=== PATIENT | female | born 1945 | race Caucasian/White ===

== ENCOUNTER 2018-04-27 15:40 | Observation (INO) | payer OTHER ==
--- OUTSIDE RECORDS SUMMARY | 2018-04-27 15:44 | XMS REPORT ---
:1945 Author Organization [employer] Care Team Providers Name Role Phone Fabiano Boyer Provider Role Unavailable Allergies, Adverse Reactions, Alerts Substance Reaction Event Type adhesive tape Info Not Available Non Drug Allergy penicillin Info Not Available Non Drug Allergy sulfa KARY, Rash Non Drug Allergy Elavil Info Not Available Non Drug Allergy betadine Info Not Available Non Drug Allergy Encounters Encounter Location Date [place] Jul 26, 2013 Test results [facility] Jul 27, 2013 diarrhea [facility] [place] Jul 25, 2013 Problems Problem Type Condition ICD-9 Code Onset Dates Condition Status Assessment Gastroenteritis 558.9 Active Assessment Diarrhea 787.91 Active Assessment Nicotine Abuse 305.1 Active Problem Nicotine Abuse 305.1 Active Problem Chronic pain syndrome 338.4 Active Problem Unspecified myalgia and myositis 729.1 Active Problem Body Mass Index 31.0-31.9, adult V85.31 Active Assessment Abdominal pain, left lower 789.04 Active quadrant Problem Pain in joint, pelvic region and 719.45 Active thigh Problem Hypothyroidism 244.9 Active Assessment Body Mass Index 31.0-31.9, adult V85.31 Active Assessment Pain in joint, pelvic region and 719.45 Active thigh Assessment Screening for depression V79.0 Active Assessment Chronic pain syndrome 338.4 Active Assessment Screening for alcoholism V79.1 Active Assessment Unspecified myalgia and myositis 729.1 Active Medications Medication Code Code Instructions Start End Status Dosage System Date Date Chantix Starting [facility] 47731-08 0.5 MG X 11 & 1 Active as directed Month Deepak 71-02 MG X 42 [place] [address]-80 1 MG Orally Active 1 tablet 69-56 Twice a day Naftin [facility] 37506-09 2 % Externally Active 1 application 02-45 Once a day to affected area Advair Diskus [facility] 37248-59 250-50 MCG/DOSE Active 1 puff 96-00 Inhalation Twice a day Lyrica NDC 05204-78 75 MG Orally Active 1 capsule 14-41 Twice a day Chlorzoxazone NDC 02777-45 500 MG Orally Active 1 tablet 12-10 Three times a day Hydrocodone-APAP- MULTUM 34688 10-325 MG Active as directed Dietary Prod Orally Alprazolam NDC 58644-89 1 MG Orally Active 1 tablet 31-10 Twice a day Ciprofloxacin HCl NDC 28422-73 500 mg Orally Active 1 tablet 37-01 twice a day Tizanidine HCl NDC 81690-92 2 MG Orally Active 1 tablet as 34-10 every 8 hrs needed Levothyroxine NDC 26229-35 75 MCG Orally Active 1 tablet on an Sodium 55-00 Once a day empty stomach in the morning Social History Social History Element Qualifiers Date Reported Smoking / Tobacco Use: . Status: Current Smoker Jul 25, 2013 Alcohol: yes. seldom Jul 25, 2013 Family history Qualifier Description Comment Date Reported Mother had a previous stroke- passed 8 days after Jul 25, 2013 Father lung cancer Jul 25, 2013 Vital Signs Date/Time: Jul 25, 2013 Blood Pressure Diastolic 91 mm Hg Blood Pressure Systolic 160 mm Hg Temperature 97.3 F Weight 157 lbs Height 59 inches Results URINALYSIS, COMPLETE CBC (INCLUDES DIFF/PLT) Summary Purpose [employer] Submission
--- OUTSIDE RECORDS SUMMARY | 2018-04-27 15:44 | XMS REPORT | Continuity of Care Document ---
:1945 Author Organization Interface Problems Problem Status Onset Classification Date Comments Source Date Reported Discharge 11/01/19 11/03/2016 Diagnosis: Acute 17 [place] bronchitis Discharge 11/01/19 11/03/2016 Diagnosis: Acute 17 [place] laryngitis VOMITTING/ UPPER Active 11/01/19 [facility] 17 [facility] R10.84 - Active 09/09/19 [facility] GENERALIZED 17 [place] ABDOMINAL PAIN K43. Nicotine Abuse Active Diagnosis 08/19/2013 Fabiano Mussaji Chronic pain Active Problem 08/19/2013 Fabiano syndrome Mussaji Unspecified Active Problem 08/19/2013 [facility]iano myalgia and Mussaji myositis Body Mass Index Active Problem 08/19/2013 Fabiano 31.0-31.9, adult Mussaji Pain in joint, Active Problem 08/19/2013 Fabiano pelvic region and Mussaji thigh Hypothyroidism Active Problem 08/19/2013 Fabiano Mussaji Gastroenteritis Active Diagnosis 08/19/2013 Fabiano Mussaji Diarrhea Active Diagnosis 08/19/2013 Fabiano Mussaji Abdominal pain, Active Diagnosis 08/19/2013 Fabiano left lower Mussaji quadrant Screening for Active Diagnosis 08/19/2013 Fabiano depression Mussaji Screening for Active Diagnosis 08/19/2013 Fabiano alcoholism Mussaji Chronic pain Active Problem 10/03/2017 Medical Group IBS (<span Resolved Problem 10/03/2017 Medical ID="[id number]"> Group, Confirmed</span>) Elvis Yeh COPD Resolved Problem 10/03/2017 Medical Group, Elvis Yeh Depression Active Problem 10/03/2017 Medical Group Diverticulosis Resolved Problem 10/03/2017 Medical Group, Elvis Yeh Former smoker Active Problem 10/03/2017 Medical Group Gastric ulcer Active Problem 10/03/2017 Medical Group History of bladder Active Problem 10/03/2017 Medical suspension Group procedure History of breast Active Problem 10/03/2017 Medical cancer Group History of colon Active Problem 10/03/2017 Medical cancer Group History of uterine Active Problem 10/03/2017 Medical cancer Group History of ovarian Active Problem 10/03/2017 Medical cancer Group Status post right Active Problem 10/03/2017 Medical knee replacement Group History of colon Active Problem 10/03/2017 Medical polyps Group, VIBHA BaezElvis Meyers [place] Hypothyroidism Active Problem 10/03/2017 Medical Group, VIBHA Baez,Elvis Meyers [place] Uterine cancer Resolved Problem 10/03/2017 Medical Group, VIBHA Baez,Elvis Meyers [place] Breast cancer Resolved Problem 10/03/2017 Medical Group, VIBHA BaezElvis Meyers [place] Ovarian cancer Resolved Problem 10/03/2017 Medical Group, VIBHA BaezElvis Meyers [place] Migraine Active Problem 10/03/2017 Medical Group, VIBHA BaezElvis Meyers [place] Migraines Resolved Problem 10/03/2017 Medical Group, VIBHA BaezElvis [place] Fibromyalgia Active Problem 10/03/2017 Medical Group, VIBHA Baez Luigi [place] Polyarthralgia Active Problem 10/03/2017 Medical Group Colitis Resolved Problem 10/03/2017 Medical Group, VIBHA BaezElvis Meyers [place] Obesity Active Problem 10/03/2017 Medical Group, VIBHA BaezElvis Meyers [place] Sciatica of right Active Problem 10/03/2017 Medical side Group Acrochordon Active Problem 10/03/2017 Medical Group Swelling of right Active Problem 10/03/2017 Medical lower extremity Group Cystocele with Active Problem 10/03/2017 Medical rectocele Group, VIBHA BaezElvis Meyers S[place] RLS (<span Resolved Problem 10/03/2017 Medical ID="[id number]"> Group, Confirmed</span>) Elvis Yeh Medications Medication Details Route Status Patient Ordering Order Source Instructions Provider Date rOPINIRole 2 mg 2 mg=1 tab, Active oral tablet PO, BID, # 2018 Medical 180 ea, 3 Group Refill(s), Pharmacy: [facility] montelukast 10 See Active mg oral tablet Instructions, 2018 Medical TAKE 1 TABLET Group BY MOUTH DAILY, # 90 tab, 3 Refill(s), Pharmacy: [facility] [id number] Fluticasone 1 puff, Active propionate 0.25 INHALATION, 2018 Medical MG/ACTUAT / BID, # 180 Group salmeterol 0.05 puff, 11 MG/ACTUAT Dry Refill(s), Powder Inhaler Pharmacy: [facility] [id number] 200 ACTUAT 180 Active Albuterol 0.09 microgram=2 2018 Medical MG/ACTUAT puff, Group Metered Dose INHALATION, Inhaler [ProAir QID, PRN PRN, HFA] # 3 ea, 3 Refill(s), Pharmacy: [facility] [id number] Furosemide 20 20 mg=1 tab, Active MH MG Oral Tablet PO, Daily, # 2018 Medical 90 tab, 3 Group Refill(s), Pharmacy: [facility] [id number] Levothroid 88 88 Active mcg (0.088 mg) microgram=1 2018 Medical oral tablet tab, PO, Group Daily, # 90 tab, 3 Refill(s), Pharmacy: [facility] [id number] Furosemide 20 20 mg=1 tab, Inactive MH MG Oral Tablet PO, Daily, # 2018 Medical 90 tab, 0 Group Refill(s) Acetaminophen 1 tab, Route: Inactive MH 325 MG / PO, Drug 2017 [place] Hydrocodone Form: TAB, Bitartrate 5 MG Dosing Weight Oral Tablet 74.545, kg, [[place] 5/325] ONCE, STAT, Start date: 10/31/16 18:03:00 CDT, Stop date: 10/31/16 18:03:00 CDT Prednisone 50 50 mg=1 tab, Active 10/31/ MH MG Oral Tablet PO, Daily, X 2017 Sasha 5 day, # 5 tab, 0 Refill(s) Acetaminophen 5 ml, PO, Active 10/31/ MH 24 MG/ML / Q6H, PRN 2017 [place] Codeine Cough, X 5 Phosphate 2.4 day, # 100 MG/ML Oral mL, 0 Solution Refill(s) tramadol 50 mg=1 tab, Active 10/31/ MH hydrochloride PO, Q4H, PRN 2017 [place] 50 MG Oral pain, X 3 Tablet [Ultram] day, # 20 tab, 0 Refill(s) Albuterol 0.833 9 mL, Route: Inactive MG/ML / NEB, Drug 2016 [place] Ipratropium Form: SOLN, [place] 0.167 Dosing Weight MG/ML Inhalant 74.545, kg, Solution PRN, PRN [DuoNeb] Respiratory Protocol, Start date: 10/31/16 16:35:00 CDT, Duration: 30 day, Stop date: 11/30/16 16:34:00 CDTNotes: (Same as: Duoneb) Prednisone 60 mg, Route: Inactive PO, Drug 2016 [place] form: TAB, ONCE, Dosing Weight 74.545, kg, Priority: STAT, Start date: 10/31/16 16:35:00 CDT, Stop date: 10/31/16 16:35:00 CDT Saline Flush 10 mL, Route: Inactive 0.9% IVP, Drug 2016 [place] Form: INJ, Dosing Weight 74.545, kg, PRN, PRN Line Flush, Start date: 10/31/16 15:16:00 CDT, Duration: 30 day, Stop date: 11/30/16 15:15:00 CDTNotes: (Same as: BD Posiflush) Chantix as directed Orally Active 0.5 MG X 11 & Mussaji Fabiano Starting Month 1 MG X 42 [facility] Deepak Orally use as directed Chantix 1 tablet Orally Active 1 MG Orally Mussaji Fabiano Twice a day [facility] Naftin 1 application Externally Active 2 % Mussaji Fabiano to affected Externally [facility] area Once a day Advair Diskus 1 puff Inhalation Active 250-50 Mussaji Fabiano MCG/DOSE [facility] Inhalation Twice a day Lyrica 1 capsule Orally Active 75 MG Orally Mussaji Fabiano Twice a day [facility] Chlorzoxazone 1 tablet Orally Active 500 MG Orally Mussaji Fabiano Three times a [facility] day Hydrocodone-APA as directed Orally Active 10-325 MG Mussaji Fabiano P-Dietary Prod Orally [facility] Alprazolam 1 tablet Orally Active 1 MG Orally Mussaji Fabiano Twice a day Rosalind Ciprofloxacin 1 tablet Orally Active 500 mg Orally Rosalind Fabiano HCl twice a day Rosalind Tizanidine HCl 1 tablet as Orally Active 2 MG Orally Rosalind Fabiano needed every 8 hrs Rosalind Levothyroxine 1 tablet on Orally Active 75 MCG Orally Rosalind Fabiano Sodium an empty Once a day Rosalind stomach in the morning Allergies, Adverse Reactions, Alerts Substance Category Reaction Severity Reaction Status Date Comments Source type Reported adhesive tape Adverse Info Not Adverse Active Fabiano Reaction Available Reaction 4 Rosalind penicillin Adverse Info Not Adverse Active Fabiano Reaction Available Reaction 4 Rosalind sulfa Adverse KARY, Rash Adverse Active Fabiano Reaction Reaction 4 Rosalind betadine Adverse Info Not Adverse Active Fabiano Reaction Available Reaction 4 Rosalind Elavil Assertion Drug Active allergy Medical Group penicillins Assertion Drug Active allergy Medical Group sulfa drugs Assertion Drug Active allergy Medical Group clindamycin Assertion Drug Active allergy Medical Group minocycline Assertion Drug Active allergy Medical Group nitrofurantoin Assertion Drug Active allergy Medical Group bacitracin Assertion Drug Active allergy Medical Group Betadine Assertion Drug Active allergy Medical Group Advil Assertion Drug Active allergy Medical Group Levaquin Assertion Drug Active allergy Medical Group Benadryl Assertion Drug Active allergy Medical Group Tape Assertion Drug Active allergy Medical Group Benadryl Assertion Drug Active Allergy Sinus allergy Medical (obsolete1) Group levoFLOXacin Assertion Drug Active allergy Medical Group Immunizations Immunization Date Site Status Last Comments Source Given Updated diphtheria/pertus Left completed [facility] sis, acel/tetanus 6 Deltoid Comment: Group, adult<sup>1</sup> needle OPID length: Sasha 25X1" [place] pneumococcal Right completed [facility] 13-valent vaccine 6 deltoid Group, [facility]ID [place] Hx pneumococcal completed [facility] vaccine 6 [facility], [facility] influenza virus completed [facility] vaccine, 6 Group, inactivated OPID [facility] Results Order Name Results Value Reference Date Interpretation Comments Source Range URINE AND UA Blood Small Negative 10/31 [facility] [place] *ABN* (10/31/16 6:09 PM) URINE AND UA 0.2 EU/dL 0.1 - 1.0 10/31 STOOL Urobilinogen /2016 [place] URINE AND UA pH 6.5 5.0 - 8.0 10/31 STOOL [place] URINE AND UA Protein Negative Negative 10/31 [facility]OOL [place] (10/31/16 6:09 PM) URINE AND UA Bili Negative Negative 10/31 [place] *NA* (10/31/16 6:09 PM) URINE AND UA Ketones Negative Negative 10/31 [place] *NA* (10/31/16 6:09 PM) URINE AND UA Sq Epi Many /LPF Few /LPF 10/31 [place] URINE AND UA Leuk Est Large Negative 10/31 STOOL [place] *ABN* (10/31/16 6:09 PM) URINE AND UA Glucose Negative Negative 10/31 [place] (10/31/16 6:09 PM) URINE AND UA Nitrite Negative Negative 10/31 STOOL [place] (10/31/16 6:09 PM) URINE AND UA Bacteria Moderate None Seen 10/31 STOOL /HPF /HPF [place] URINE AND UA RBC 0-2 /HPF 0 - 2 10/31 [place] URINE AND UA WBC 11-20 /HPF None Seen 10/31 STOOL /HPF [place] URINE AND UA Turbidity Slight Cloudy Clear 10/31 [place] (10/31/16 6:09 PM) URINE AND UA Color Yellow Yellow 10/31 [place] *NA* (10/31/16 6:09 PM) URINE AND UA Spec Grav 1.015 <=1.030 10/31 STOOL [place] CARDIAC CK MB 0.9 ng/mL 0.5 - 3.6 10/31 ENZYMES [place] CARDIAC Total CK 63 unit/L 12 - 191 10/31 ENZYMES [place] CARDIAC Troponin-I null 0.00 - 10/31 ENZYMES 0.40 [place] CARDIAC CK-MB INDEX 1.4 0.0 - 2.5 10/31 MH ENZYMES [place] CHEM PANEL eGFR 51 10/31 Result Comment: The eGFR is calculated using the CKD-EPI formula. In most young, healthy individuals the eGFR will be >90 mL/ min/1.73m2. The eGFR declines with age. An eGFR of 60-89 may be normal in mL/min/1.7 2017 some populations, particularly the elderly, for whom the CKD-EPI formula has not been extensively validated. Use of the eGFR is not recommended in the following populations: [address] Individuals with unstable creatinine concentrations, including patients and those with serious co-morbid conditions. Patients with extremes in muscle mass or diet. The data above are obtained from the National Kidney Disease Education Program (NKDEP) which additionally recommends that when the eGFR is used in patients with extremes of body mass index for purposes of drug dosing, the eGFR should be multiplied by the estimated BMI. CHEM PANEL B/C Ratio 6 6 - 25 10/31 [place] CHEM PANEL A/G Ratio 0.9 0.7 - 1.6 10/31 [place] CHEM PANEL Globulin 3.8 g/dL 2.7 - 4.2 10/31 [place] CHEM PANEL Creatinine 1.08 mg/dL 0.50 - 10/31 MH Lvl 1.40 [place] CHEM PANEL Potassium 3.8 meq/L 3.5 - 5.1 10/31 MH Lvl [place] CHEM PANEL Sodium Lvl 141 meq/L 135 - 145 10/31 [place] CHEM PANEL Albumin Lvl 3.3 g/dL 3.5 - 5.0 10/31 [place] CHEM PANEL Alk Phos 98 unit/L 39 - 136 10/31 [place] CHEM PANEL Glucose Lvl 96 mg/dL 70 - 99 10/31 [place] CHEM PANEL BUN 7 mg/dL 7 - 22 10/31 [place] CHEM PANEL ASPARTATE 15 unit/L 0 - 37 10/31 [place] CHEM PANEL Total 7.1 g/dL 6.4 - 8.4 / MH [place] CHEM PANEL AGAP 12.8 meq/L 10.0 - 05 MH 20.0 [place] CHEM PANEL Chloride Lvl 105 meq/L 95 - 109 10/31 [place] CHEM PANEL CO2 27 meq/L 24 - 32 05 [place] CHEM PANEL Bili Total 0.3 mg/dL 0.2 - 1.3 10/31 [place] CHEM PANEL Calcium Lvl 8.8 mg/dL 8.5 - 10.5 10/31 [place] CHEM PANEL ALANINE 23 unit/L 0 - 65 10/31 MH AMINOTRANS /2016 [place] RAS HEMATOLOGY WBC X 10x3 9.0 K/CMM 3.7 - 10.4 10/31 [place] HEMATOLOGY RBC X 10x6 4.95 M/CMM 4.20 - 05 MH 5.40 [place] HEMATOLOGY Hgb 14.3 g/dL 12.0 - 10/31 MH 16.0 [place] HEMATOLOGY Platelet 251 K/CMM 133 - 450 10/31 [place] HEMATOLOGY MCHC 33.3 g/dL 32.0 - 10/31 MH 36.0 [place] HEMATOLOGY RDW 15.2 % 11.5 - 10/31 MH 14. [place] HEMATOLOGY MCV 87.0 fL 80.0 - 10/31 MH 98.0 [place] HEMATOLOGY MPV 9.0 fL 7.4 - 10.4 10/31 [place] HEMATOLOGY MCH 29.0 pg 27.0 - 10/31 MH 31.0 [place] HEMATOLOGY Hct 43.1 % 36.0 - 10/31 MH 48.0 [place] HEMATOLOGY Eosinophils 2.8 % 0.0 - 4.0 10/31 [place] HEMATOLOGY Monocytes 9.0 % 2.0 - 12.0 10/31 [place] HEMATOLOGY Segs-Bands # 5.5 K/CMM 1.5 - 8.1 10/31 [place] HEMATOLOGY Basophils 1.1 % 0.0 - 1.0 10/31 [place] HEMATOLOGY Lymphocytes 2.4 K/CMM 1.0 - 5.5 10/31 MH # /2017 [place] HEMATOLOGY Lymphocytes 26.6 % 20.0 - 10/31 MH 40.0 [place] HEMATOLOGY Segs 60.5 % 45.0 - 10/31 MH 75.0 [place] HEMATOLOGY Basophils # 0.1 K/CMM 0.0 - 0.2 10/31 [place] HEMATOLOGY Eosinophils 0.3 K/CMM 0.0 - 0.5 10/31 MH # /2016 [place] HEMATOLOGY Monocytes # 0.8 K/CMM 0.0 - 0.8 10/31 [place] Brain wo Brain wo Study: Brain wo contrast CT 10/31/2016 3:17 PM CDT 10/31 - [facility] contrast CT contrast CT [place] Patient Name: SARAH ALFARO MR: [id number] Read by: Raj Reddy MD Dictated Date/time: 10/31/16 16:12 : 1945; Age: 71 years y/o Female Electronically Signed by: Raj Reddy MD 10/31/16 16:17 FINAL REPORT Ordering Physician: Harlan Perez Clinical Indication: Right-sided weakness for 3 days. Dlp 929.66 Comparison: None TECHNIQUE: CT images were obtained from the foramen magnum to the vertex without the use of intravenous contrast on a multidetector CT. Coronal and sagittal reformatted images were prepared. FINDINGS: BRAIN PARENCHYMA: 1. Mild diffuse age-appropriate atrophy is present associated with mild nonspecific periventricular low attenuation most consistent with old microangiopathic ischemic change. 2. No evidence of acute intracranial hemorrhage, mass lesion, mass effect , midline shift, or extra-axial fluid collection. 3. Subtle low-attenuation posteriorly within both centrum semiovale most likely representing old ischemic change. 4. Small benign-appearing calcification along the lateral margin of the left tentorium cerebelli. VENTRICLES: The lateral ventricles, third ventricle, fourth ventricle, and basilar cisterns are appropriate for degree of atrophy present. PARANASAL SINUSES: The visualized portions of the paranasal sinuses are clear. MASTOIDS: Clear. ORBITS AND SOFT TISSUES: The visualized portions of the orbits are normal. SKULL: No acute fracture or suspicious osseous lesion. IMPRESSION: 1. Mild diffuse age-appropriate atrophy is present associated with mild nonspecific periventricular low attenuation most consistent with old microangiopathic ischemic change. 2. Subtle low-attenuation posteriorly within both centrum semiovale most likely representing old ischemic change. Follow-up MR brain without contrast would be helpful. SL: TPAINTER-PC Chest 1view Chest 1view Clinical Indication:71 years Female with Chest pain - chest pain 10/31 - [facility] DX DX /2016 - [place] Comparison: None Read by: Rajat Arnold MD Dictated Date/time: 10/31/16 16:13 FINDINGS: Electronically Signed by: Rajat Arnold MD 10/31/16 16:14 FINAL REPORT Lines: None. The single frontal chest radiograph shows normal lung volumes. No interstitial or airspace opacities. No pleural effusion. No pneumothorax. Cardiac silhouette is normal. Pulmonary vasculature is normal. The trachea is midline. There are no acute osseous abnormalities noted. Right breast/ axillary soft tissue surgical clips. Cholecystectomy clips are also noted. IMPRESSION: No acute cardiopulmonary abnormality. Abdomen/Pel Abdomen/Pelv PROCEDURE: ABDOMEN AND PELVIS CT 09/10 - YANIRAD vis w/wo IV is w/wo IV /2016 - [place] contrast CT contrast CT CLINICAL INDICATION: R10.84, K43.9. Read by: Giuliano Lovelace MD Dictated Date/time: 09/10/16 16:42 Electronically Signed by: Giuliano Lovelace MD 09/13/16 12:23 FINAL REPORT COMPARISON: None. TECHNIQUE: Unenhanced and enhanced axial helical CT images of the abdomen and pelvis were performed. Postcontrast images were performed with intravenous and oral contrast. Postcontrast coronal and sagit edita reformatted images are available. Intravenous contrast: 100 mL of Visipaque.DLP: 1852.24 mGy-cm. FINDINGS: LOWER CHEST: There is mild scattered subsegmental atelectasis versus scarring in the visualized lung bases. The heart size is normal. ORGANS: The gallbladder is surgically absent. The common bile duct is dilated measuring a maximal diameter of approximately 1.1 cm. There is mild central intrahepatic biliary dilatation. There is no dem onstrable choledocholithiasis. There is a 1.3 cm left adrenal nodule with a Hounsfield unit measurement of approximately 7 on the precontrast series suggesting a benign adenoma. There is a tiny calcifie d granuloma in the liver and spleen. There is a 5 mm exophytic left renal cortical cyst. The pancreas is somewhat atrophic. There is no demonstrable abnormality of the right adrenal gland or right kidne y. No demonstrable urinary tract calculus. No hydronephrosis or pyelonephritis. BOWEL: There is a nonobstructive bowel gas pattern. There is a diverticulum arising medially from the 2nd portion of the duodenum. There is scattered colonic diverticulosis without demonstrable acute di verticulitis. There are postsurgical changes of the sigmoid colon. There is no additional demonstrable bowel abnormality. The appendix is not seen. PERITONEUM: There is no free intraperitoneal air or ascites. RETROPERITONEUM: There are aortoiliac calcifications. The caliber of the abdominal aorta is within normal limits. There is no pathologic retroperitoneal lymphadenopathy. PELVIS: The uterus is surgically absent. The ovaries are not seen and are reportedly surgically absent. The urinary bladder is unremarkable. There are pelvic arterial vascular calcifications and calcifi ed phleboliths. There is no demonstrable pelvic mass. MUSCULOSKELETAL: There are focal bandlike opacities in the subcutaneous fat of the posterior right lower thorax likely due to scarring. There are surgical clips in the subcutaneous soft tissues of the r ight lateral chest wall. There is minimal anterior bulging of the right anterolateral abdominal wall in the pelvis at the level of the cecum (images 58 through 60 series 4) although without a demonstrab le abdominal wall defect to confirm a hernia. There is no additional demonstrable abdominal wall abnormality. There is diffusely decreased bony mineralization. There are degenerative changes of the spine. A subcentimeter sclerotic lesion in the marrow of T12 and a 1.3 cm sclerotic lesion in the marrow of the sa efraín are likely benign bone islands. There are mild degenerative changes of both sacroiliac joints. IMPRESSION: 1. Post cholecystectomy and hysterectomy. 2. Extrahepatic biliary dilatation and mild central intrahepatic biliary dilatation is likely due to postcholecystectomy changes. If indicated further evaluation may be obtained with an MRCP. 3. There is a 1.3 cm left adrenal nodule with imaging characteristics suggesting a benign adenoma. 4. Subcentimeter left renal cortical cyst. 5. Duodenal diverticulum, colonic diverticulosis and postsurgical changes of the sigmoid colon. 6. Aortoiliac calcifications. 7. Focal bulging of the right anterolateral abdominal wall in the pelvis at the level of the cecum. There is no demonstrable abdominal wall defect to confirm a hernia. 8. Osseous findings as described above. SL: 15 Vital Signs Vital Sign Value Date Comments Source Systolic (mm Hg) 114 09/30/2017 Medical Group Diastolic (mm Hg) 75 09/30/2017 [facility] Heart Rate 96 09/30/2017 [facility] Temperature Oral (F) 97.8 F 09/30/2017 Medical Group BMI Calculated 33.88 09/30/2017 Medical Group Height 152.4 cm 09/30/2017 Medical Group Weight 78.682 09/30/2017 Medical Group Heart Rate 102 10/31/2016 [facility] Respitory Rate 24 10/31/2016 [facility] Systolic (mm Hg) 110 10/31/2016 [facility] Diastolic (mm Hg) 59 10/31/2016 [facility] Respitory Rate 16 10/31/2016 [facility] Systolic (mm Hg) 104 10/31/2016 [facility] Diastolic (mm Hg) 79 10/31/2016 [facility] Heart Rate 108 10/31/2016 [facility] Respitory Rate 28 10/31/2016 [facility] Temperature Oral (F) 98.1 F 10/31/2016 [facility] Systolic (mm Hg) 118 10/31/2016 [facility] Diastolic (mm Hg) 73 10/31/2016 [facility] Heart Rate 89 10/31/2016 [facility] Diastolic (mm Hg) 91 07/25/2013 Fabiano Ubaldoajoan Systolic (mm Hg) 160 07/25/2013 Afb[facility] Ubaldoajoan Temperature Oral (F) 97.3 F 07/25/2013 Fabiano Ubaldoaji Weight 157 07/25/2013 Fabiano Ubaldoaji Height 59 07/25/2013 Fabiano Mussaji Encounters Location Location Encounter Encounter Reason Attending ADM DC Status Source Details Type Number For Provider Date Date Visit Fabiano diarrhea [id number] 07/25 07/25 Fabiano Armas, [id number] /2013 BARBIE Boyer DO [id number] Fabiano Other [id number] 07/26 07/26 Fabiano Armas, [id number] /2013 BARBIE Boyer DO [id number] Fabiano Other [id number] 07/26 07/26 Fabiano Armas, [id number] /2013 BARBIE Boyer DO [id number] Fabiano Other [id number] 07/26 07/26 Fabiano Armas [id number] /2013 Rosalind MILLERBARBIE [id number] Fabiano Test [id number] 07/27 07/27 Fabiano Armas, results [id number] /2013 Rosalind MILLERBARBIE [id number] Fabiano Test [id number] 07/27 07/27 Fabiano Armas, results [id number] /2013 Rosalind MILLERBARBIE [id number] Outpatient [id number] ADENRELE 05/19 Active [facility] OLAOSUN [place] [facility] [id number] ALEXSANDER 05/29 Active [facility] LARSON [place] Outpatient [id number] ADENRELE 06/11 Active [facility] OLAOSUN [place] Outpatient [id number] CHANTAL 06/18 [facility] MUCHER [facility] Outpt Diag [id number] Niall Spence 09/10 09/11 OP[facility] Outpatient Services /[address] [facility] Emergency [id number] Yovany 10/31 10/31 [facility] Malya /2016 [facility] Outpatient [id number] ALVARO 09/30 [facility] COMBS [facility] Outpatient [id number] Alvaro 09/30 10/01 Primary [facility] /2017 [facility] Procedures Procedure Code Date Perfomer Comments Source Appendectomy [id number] Medical Group Breast cancer 1, [id number] Medical early onset gene [facility] mutation carrier detection test Breast [id number] Medical reconstruction Group BSO - Bilateral [id number] Medical salpingo-oophorectom Group y Cholecystectomy [id number] Medical Group Colostomy [id number] Medical Group gall bladder [id number] Medical Group H/O: hysterectomy [id number] Medical Group Hernia repair [id number] Medical Group History of hernia [id number] Medical repair Group Hysterectomy [id number] Medical Group Knee<sup>1</sup> [id number] Rt knee Medical surgery Group January 2017 Mastectomy [id number] Medical Group Appendectomy [id number] OPID [place] Breast cancer 1, [id number] [facility] early onset gene [place] mutation carrier detection test Breast [id number] MH OPID reconstruction [place] BSO - Bilateral [id number] MH OPID salpingo-oophorectom [place] y Cholecystectomy [id number] MH OPID [place] Colostomy [id number] [facility] [place] gall bladder [id number] [facility] [place] H/O: hysterectomy [id number] [facility] [place] Hernia repair [id number] [facility] [place] History of hernia [id number] [facility] repair [place] Hysterectomy [id number] [facility] [place] Mastectomy [id number] [facility] [place] Appendectomy [id number] [facility] [place] Breast cancer 1, [id number] [facility] [place] early onset gene mutation carrier detection test Breast [id number] [facility] [place] reconstruction BSO - Bilateral [id number] [facility] [place] salpingo-oophorectom y Cholecystectomy [id number] [facility] [place] Colostomy [id number] [facility] [place] gall bladder [id number] [facility] [place] H/O: hysterectomy [id number] [facility] [place] Hernia repair [id number] [facility] [place] History of hernia [id number] [facility] [place] repair Hysterectomy [id number] [facility] [place] Mastectomy [id number] [facility]
--- OUTSIDE RECORDS SUMMARY | 2018-04-27 15:44 | XMS REPORT | Summary of Care ---
:1945 Author Organization [facility] [place] Address [address], [place] [address]- Encounter HQ Jose(FIN) [id number] Date(s): 09/10/16 - 09/10/16 [facility] [address], [address] [place] [address] [phone] Discharge Disposition: Home or Self Care Attending Physician: Niall Spence MD Vital Signs No data available for this section Problem List Condition Effective Dates Status Health Status Informant IBS (irritable bowel Resolved syndrome)(Confirmed) COPD(Confirmed) Resolved Diverticulosis(Confirmed) Resolved Diverticulosis(Confirmed) Active History of colon polyps(Confirmed) Active Hypothyroidism(Confirmed) Active Uterine cancer(Confirmed) Resolved Breast cancer(Confirmed) Resolved Ovarian cancer(Confirmed) Resolved Migraine(Confirmed) Active Migraines(Confirmed) Resolved Fibromyalgia(Confirmed) Active Fibromyalgia(Confirmed) Resolved Colitis(Confirmed) Resolved Obesity(Confirmed) Active Cystocele with rectocele(Confirmed) Active RLS (restless legs Resolved syndrome)(Confirmed) Allergies, Adverse Reactions, Alerts Substance Reaction Severity Status Advil Active bacitracin Active Benadryl Active Benadryl Allergy Sinus (obsolete1) Active Betadine Active clindamycin Active Elavil Active Levaquin Active levoFLOXacin Active minocycline Active nitrofurantoin Active penicillins Active sulfa drugs Active Tape Active Medications No data available for this section Results No data available for this section Immunizations Given and Recorded Vaccine Date Status Refusal Reason diphtheria/pertussis, acel/tetanus adult1 06/11/16 Given Hx pneumococcal vaccine 03/14/16 Recorded influenza virus vaccine, inactivated 03/14/16 Recorded pneumococcal 13-valent vaccine 04/24/16 Given 1Result Comment: needle length: 25X1" Procedures Procedure Date Related Diagnosis Body Site Appendectomy Appendectomy Breast cancer 1, early onset gene mutation carrier detection test Breast reconstruction Breast reconstruction BSO - Bilateral salpingo-oophorectomy Cholecystectomy Colostomy gall bladder H/O: hysterectomy Hernia repair History of hernia repair Hysterectomy Mastectomy Social History Social History Type Response Smoking Status Former smoker; Type: Cigarettes; Exposure to Tobacco Smoke None ; Other Tobacco Frequency Pt. quit in 08/2015; Cigarette Smoking Last 365 Days Yes; Reg Smoking Cessation Counseling No Assessment and Plan No data available for this section
--- OUTSIDE RECORDS SUMMARY | 2018-04-27 15:44 | XMS REPORT | Summary of Care ---
:1945 Author Organization [facility] Address [address] [place] [address]- Encounter HQ Eliecer_gisel(FIN) [id number] Date(s): 10/31/16 - 10/31/16 [facility] [address] [place] [phone] Discharge Diagnosis: Acute bronchitis Discharge Diagnosis: Acute laryngitis Discharge Disposition: Home or Self Care Attending Physician: Yovany Morfin MD Vital Signs Most recent to oldest 1 2 3 [Reference Range]: Temperature Oral [96.4-99.1 98.1 DegF DegF] (10/31/16 3:14 PM) Blood Pressure [90-140/60-90 110/59 mmHg 104/79 mmHg 118/73 mmHg mmHg] (10/31/16 5:22 PM) (10/31/16 4:27 PM) (10/31/16 3:14 PM) Respiratory Rate [14-20 BRMIN] 24 BRMIN 16 BRMIN 28 BRMIN *HI* (10/31/16 4:54 PM) *HI* (10/31/16 5:22 PM) (10/31/16 4:27 PM) Peripheral Pulse Rate [60-100 102 bpm 108 bpm 89 bpm bpm] *HI* *HI* (10/31/16 3:14 PM) (10/31/16 5:22 PM) (10/31/16 4:27 PM) Problem List Condition Effective Dates Status Health [...] Active sulfa drugs Active Tape Active Medications acetaminophen-codeine 120 mg-12 mg/5 mL oral liquid 5 ml, PO, Q6H, PRN Cough, X 5 day, # 100 mL, 0 Refill(s) Start Date: 10/31/16 Stop Date: 11/05/16 Status: OrderedDuoNeb inhalation solution 9 mL, Route: NEB, Drug Form: SOLN, Dosing Weight 74.545, kg, PRN, PRN Respiratory Protocol, Start date: 10/31/16 16:35:00 CDT, Duration: 30 day, Stop date: 11/30/16 16:34:00 CDT Notes: (Same as: Duoneb) Start Date: 10/31/16 Stop Date: 10/31/16 Status: DiscontinuedNorco 5/325 oral tablet 1 tab, Route: PO, Drug Form: TAB, Dosing Weight 74.545, kg, ONCE, STAT, Start date: 10/31/16 18:03:00 CDT, Stop date: 10/31/16 18:03:00 CDT Start Date: 10/31/16 Stop Date: 10/31/16 Status: CompletedpredniSONE 60 mg, Route: PO, Drug form: TAB, ONCE, Dosing Weight 74.545, kg, Priority: STAT , Start date: 10/31/16 16:35:00 CDT, Stop date: 10/31/16 16:35:00 CDT Start Date: 10/31/16 Stop Date: 10/31/16 Status: CompletedpredniSONE 50 mg oral tablet 50 mg=1 tab, PO, Daily, X 5 day, # 5 tab, 0 Refill(s) Start Date: 10/31/16 Stop Date: 11/05/16 Status: OrderedSaline Flush 0.9% 10 mL, Route: IVP, Drug Form: INJ, Dosing Weight 74.545, kg, PRN, PRN Line Flush , Start date: 10/31/16 15:16:00 CDT, Duration: 30 day, Stop date: 11/30/16 15:15 :00 CDT Notes: (Same as: BD Posiflush) Start Date: 10/31/16 Stop Date: 10/31/16 Status: DiscontinuedUltram 50 mg oral tablet 50 mg=1 tab, PO, Q4H, PRN pain, X 3 day, # 20 tab, 0 Refill(s) Start Date: 10/31/16 Stop Date: 11/03/16 Status: Ordered Results ELECTROLYTES Most recent to oldest [Reference Range]: 1 Sodium Lvl [135-145 mEq/L] 141 mEq/L (10/31/16 3:39 PM) Potassium Lvl [3.5-5.1 mEq/L] 3.8 mEq/L (10/31/16 3:39 PM) Chloride Lvl [95-109 mEq/L] 105 mEq/L (10/31/16 3:39 PM) CO2 [24-32 mEq/L] 27 mEq/L (10/31/16 3:39 PM) AGAP [10.0-20.0 mEq/L] 12.8 mEq/L (10/31/16 3:39 PM) CHEM PANEL Most recent to oldest [Reference Range]: 1 Creatinine Lvl [0.50-1.40 mg/dL] 1.08 mg/dL (10/31/16 3:39 PM) eGFR 51 mL/min/1.73m2 1 *NA* (10/31/16 3:39 PM) BUN [7-22 mg/dL] 7 mg/dL (10/31/16 3:39 PM) B/C Ratio [6-25] 6 (10/31/16 3:39 PM) Glucose Lvl [70-99 mg/dL] 96 mg/dL (10/31/16 3:39 PM) Total Protein [6.4-8.4 g/dL] 7.1 g/dL (10/31/16 3:39 PM) Albumin Lvl [3.5-5.0 g/dL] 3.3 g/dL *LOW* (10/31/16 3:39 PM) Globulin [2.7-4.2 g/dL] 3.8 g/dL (10/31/16 3:39 PM) A/G Ratio [0.7-1.6] 0.9 (10/31/16 3:39 PM) Calcium Lvl [8.5-10.5 mg/dL] 8.8 mg/dL (10/31/16 3:39 PM) ALT [0-65 unit/L] 23 unit/L (10/31/16 3:39 PM) AST [0-37 unit/L] 15 unit/L (10/31/16 3:39 PM) Alk Phos [39-136 unit/L] 98 unit/L (10/31/16 3:39 PM) Bili Total [0.2-1.3 mg/dL] 0.3 mg/dL (10/31/16 3:39 PM) 1Result Comment: The eGFR is calculated using the CKD-EPI formula. In most young , healthy individualsthe eGFR will be >90 mL/min/1.73m2. The eGFR declines with age. An eGFR of 60-89 may be normal in some populations, particularly the elderly, for whom the CKD-EPI formula has not been extensively validated. Use of the eGFR is not recommended in the following populations: Individuals with unstable creatinine concentrations, including patients and those with serious co-morbid conditions. Patients with extremes in muscle mass or diet. The data above are obtained from the National Kidney Disease Education Program ( NKDEP) which additionally recommends that when the eGFR is used in patients with extremes of body mass index for purposesof drug dosing, the eGFR should be multiplied by the estimated BMI.CARDIAC ENZYMES Most recent to oldest [Reference Range]: 1 Total CK [12-191 unit/L] 63 unit/L (10/31/16 3:39 PM) CK MB [0.5-3.6 ng/mL] 0.9 ng/mL (10/31/16 3:39 PM) CK MB Index [0.0-2.5] 1.4 (10/31/16 3:39 PM) Troponin-I [0.00-0.40 ng/mL] <0.02 ng/mL (10/31/16 3:39 PM) URINE AND STOOL Most recent to oldest [Reference Range]: 1 UA Turbidity [Clear] Slight Cloudy (10/31/16 6:09 PM) UA Color [Yellow] Yellow *NA* (10/31/16 6:09 PM) UA pH [5.0-8.0] 6.5 (10/31/16 6:09 PM) UA Spec Grav [<=1.030] 1.015 (10/31/16 6:09 PM) UA Glucose [Negative] Negative (10/31/16 6:09 PM) UA Blood [Negative] Small *ABN* (10/31/16 6:09 PM) UA Ketones [Negative] Negative *NA* (10/31/16 6:09 PM) UA Protein [Negative] Negative (10/31/16 6:09 PM) UA Urobilinogen [0.1-1.0 EU/dL] 0.2 EU/dL (10/31/16 6:09 PM) UA Bili [Negative] Negative *NA* (10/31/16 6:09 PM) UA Leuk Est [Negative] Large *ABN* (10/31/16 6:09 PM) UA Nitrite [Negative] Negative (10/31/16 6:09 PM) UA WBC [None Seen /HPF] 11-20 /HPF *ABN* (10/31/16 6:09 PM) UA RBC [0-2 /HPF] 0-2 /HPF (10/31/16 6:09 PM) UA Bacteria [None Seen /HPF] Moderate /HPF (10/31/16 6:09 PM) UA Sq Epi [Few /LPF] Many /LPF *ABN* (10/31/16 6:09 PM) HEMATOLOGY Most recent to oldest [Reference Range]: 1 WBC [3.7-10.4 K/CMM] 9.0 K/CMM (10/31/16 3:39 PM) RBC [4.20-5.40 M/CMM] 4.95 M/CMM (10/31/16 3:39 PM) Hgb [12.0-16.0 g/dL] 14.3 g/dL (10/31/16 3:39 PM) Hct [36.0-48.0 %] 43.1 % (10/31/16 3:39 PM) MCV [80.0-98.0 fL] 87.0 fL (10/31/16 3:39 PM) MCH [27.0-31.0 pg] 29.0 pg (10/31/16 3:39 PM) MCHC [32.0-36.0 g/dL] 33.3 g/dL (10/31/16 3:39 PM) RDW [11.5-14.5 %] 15.2 % *HI* (10/31/16 3:39 PM) Platelet [133-450 K/CMM] 251 K/CMM (10/31/16 3:39 PM) MPV [7.4-10.4 fL] 9.0 fL (10/31/16 3:39 PM) Segs [45.0-75.0 %] 60.5 % (10/31/16 3:39 PM) Lymphocytes [20.0-40.0 %] 26.6 % (10/31/16 3:39 PM) Monocytes [2.0-12.0 %] 9.0 % (10/31/16 3:39 PM) Eosinophils [0.0-4.0 %] 2.8 % (10/31/16 3:39 PM) Basophils [0.0-1.0 %] 1.1 % *HI* (10/31/16 3:39 PM) Segs-Bands # [1.5-8.1 K/CMM] 5.5 K/CMM (10/31/16 3:39 PM) Lymphocytes # [1.0-5.5 K/CMM] 2.4 K/CMM (10/31/16 3:39 PM) Monocytes # [0.0-0.8 K/CMM] 0.8 K/CMM (10/31/16 3:39 PM) Eosinophils # [0.0-0.5 K/CMM] 0.3 K/CMM (10/31/16 3:39 PM) Basophils # [0.0-0.2 K/CMM] 0.1 K/CMM (10/31/16 3:39 PM) Immunizations Given and Recorded Vaccine Date Status [...] History Social History Type Response Smoking Status Current some day smoker; Type: Cigarettes; Exposure to Tobacco Smoke None; Cigarette Smoking Last 365 Days No; Reg Smoking Cessation Counseling No Assessment and Plan No data available for this section
--- OUTSIDE RECORDS SUMMARY | 2018-04-27 15:44 | XMS REPORT ---
:1945 Author Organization [employer] Care Team Providers Name Role Phone Fabiano Boyer Provider Role Unavailable Encounters Encounter Location Date Other Fabiano Arm[place] Jul 26, 2013 Test results Fabiano Armas [place], [place] Jul 27, 2013 Problems Problem Type Condition ICD-9 Code Onset Dates Condition Status Problem Nicotine Abuse 305.1 Active Problem Chronic pain syndrome 338.4 Active Problem Unspecified myalgia and myositis 729.1 Active Problem Body Mass Index 31.0-31.9, adult V85.31 Active Problem Pain in joint, pelvic region and 719.45 Active thigh Problem Hypothyroidism 244.9 Active Social History Social History Element Qualifiers Date Reported Smoking / Tobacco Use: . Status: Current Smoker Jul 25, 2013 Alcohol: yes. seldom Jul 25, 2013 Vital Signs Date/Time: Jul 25, 2013 Blood Pressure Diastolic 91 mm Hg Blood Pressure Systolic 160 mm Hg Temperature 97.3 F Weight 157 lbs Height 59 inches Summary Purpose eClinical[employer] Submission
--- OUTSIDE RECORDS SUMMARY | 2018-04-27 15:44 | XMS REPORT ---
:1945 Author Organization [employer] Care Team Providers Name Role Phone Fabiano Boyer Provider Role Unavailable Encounters Encounter Location Date Other Fabiano Armas [place], [place] Jul 26, 2013 Problems Problem Type Condition ICD-9 Code [...]
--- OUTSIDE RECORDS SUMMARY | 2018-04-27 15:45 | XMS REPORT | Summary of Care ---
:1945 Author Organization [facility] Address [address] [place] [address], [address] [address]- Encounter HQ Jose(FIN) [id number] Date(s): 09/30/17 - 09/30/17 [facility] [address] [facility], [address] [address]- [phone] Discharge Disposition: Home or Self Care Attending Physician: Alvaro Camargo MD Vital Signs Most recent to oldest [Reference Range]: 1 Height 152.4 cm (09/30/17 12:42 PM) Temperature Oral [96.4-99.1 DegF] 97.8 DegF (09/30/17 12:42 PM) Blood Pressure [90-140/60-90 mmHg] 114/75 mmHg (09/30/17 12:42 PM) Peripheral Pulse Rate [60-100 bpm] 96 bpm (09/30/17 12:42 PM) Weight 78.682 kg (09/30/17 12:42 PM) Body Mass Index 33.88 m2 (09/30/17 12:42 PM) Problem List Condition Effective Dates Status Health Status Informant Chronic pain(Confirmed) Active IBS (irritable bowel Resolved syndrome)(Confirmed) COPD(Confirmed) Resolved Depression(Confirmed) Active Diverticulosis(Confirmed) Resolved Diverticulosis(Confirmed) Active Former smoker(Confirmed) Active Gastric ulcer(Confirmed) Active History of bladder suspension Active procedure(Confirmed) History of breast cancer(Confirmed) Active History of colon cancer(Confirmed) Active History of uterine cancer(Confirmed) Active History of ovarian cancer(Confirmed) Active Status post right knee Active replacement(Confirmed) History of colon polyps(Confirmed) Active Hypothyroidism(Confirmed) Active Uterine cancer(Confirmed) Resolved Breast cancer(Confirmed) Resolved Ovarian cancer(Confirmed) Resolved Migraine(Confirmed) Active Migraines(Confirmed) Resolved Fibromyalgia(Confirmed) Active Fibromyalgia(Confirmed) Resolved Polyarthralgia(Confirmed) Active Colitis(Confirmed) Resolved Obesity(Confirmed) Active Sciatica of right side(Confirmed) Active Acrochordon(Confirmed) Active Swelling of right lower Active extremity(Confirmed) Cystocele with rectocele(Confirmed) Active RLS (restless legs Resolved syndrome)(Confirmed) Allergies, Adverse Reactions, Alerts Substance Reaction Severity Status penicillins Active sulfa drugs Active clindamycin Active minocycline Active nitrofurantoin Active bacitracin Active Betadine Active Advil Active Elavil Active Levaquin Active Benadryl Active Tape Active Benadryl Allergy Sinus (obsolete1) Active levoFLOXacin Active Medications fluticasone-salmeterol 250 mcg-50 mcg MDI 1 puff, INHALATION, BID, # 180 puff, 11 Refill(s), Pharmacy: [facility] [id number] Start Date: 09/30/17 Status: Orderedfurosemide 20 mg oral tablet 20 mg=1 tab, PO, Daily, # 90 tab, 3 Refill(s), Pharmacy: [facility] [id number] Start Date: 09/30/17 Status: Orderedfurosemide 20 mg oral tablet 20 mg=1 tab, PO, Daily, # 90 tab, 0 Refill(s) Start Date: 09/30/17 Stop Date: 09/30/17 Status: DiscontinuedLevothroid 88 mcg (0.088 mg) oral tablet 88 microgram=1 tab, PO, Daily, # 90 tab, 3 Refill(s), Pharmacy: [facility] [id number] Start Date: 09/30/17 Status: Orderedmontelukast 10 mg oral tablet See Instructions, TAKE 1 TABLET BY MOUTH DAILY, # 90 tab, 3 Refill(s), Pharmacy : [facility] [id number] Start Date: 09/30/17 Status: OrderedProAir HFA 90 mcg/inh inhalation aerosol with adapter 180 microgram=2 puff, INHALATION, QID, PRN PRN, # 3 ea, 3 Refill(s), Pharmacy: [facility] [id number] Start Date: 09/30/17 Status: OrderedrOPINIRole 2 mg oral tablet 2 mg=1 tab, PO, BID, # 180 ea, 3 Refill(s), Pharmacy: [facility] [id number] Start Date: 09/30/17 Status: Ordered Results No data available for this section Immunizations Given and Recorded Vaccine Date Status Refusal Reason diphtheria/pertussis, acel/tetanus adult1 06/11/16 Given pneumococcal 13-valent vaccine 04/24/16 Given Hx pneumococcal vaccine 03/14/16 Recorded influenza virus vaccine, inactivated 03/14/16 Recorded 1Result Comment: needle length: 25X1" Procedures Procedure Date Related Diagnosis Body Site Status Appendectomy Completed Appendectomy Completed Breast cancer 1, early onset gene mutation Completed carrier detection test Breast reconstruction Completed Breast reconstruction Completed BSO - Bilateral salpingo-oophorectomy Completed Cholecystectomy Completed Colostomy Completed gall bladder Completed H/O: hysterectomy Completed Hernia repair Completed History of hernia repair Completed Hysterectomy Completed Knee1 Completed Mastectomy Completed 1Rt knee surgery January 2017 Social History Social History Type Response Sexual Sexually active: No. Exercise Exercise frequency: 1-2 times/week.1 Employment/School Status: Retired.2 Alcohol Past Smoking Status Former smoker; Type: Cigarettes; Exposure to Tobacco Smoke None ; Cigarette Smoking Last 365 Days Yes; Reg Smoking Cessation Counseling No; Other Tobacco Frequency Pt. quit in 01/2017; entered on: 10/01/17 1PT with home health 2x a [id number] alone; daughter nearby and PT 2x/week, nurse visit every other week and caregiver comes in regularly Assessment and Plan No data available for this section
[2018-04-27] MEDS ORDERED: ALBUTEROL 2.5 MG/3 ML NEB SOL ONE (17:26)
[2018-04-27] MEDS ORDERED: IPRATROPIUM BROM 0.5MG/2.5ML ONE (17:26)
--- NOTE | 2018-04-27 18:35 | RAD REPORT ---
EXAM DESCRIPTION: Talia Pa And Lat (2 Views)04/27/2018 6:17 pm CLINICAL HISTORY: Cough COMPARISON: None FINDINGS: Mild bilateral pulmonary interstitial opacities are suspected. The heart is normal size IMPRESSION: Mild bilateral interstitial opacities may represent an atypical pneumonia or pneumoniti s
[2018-04-27] MEDS ORDERED: HYDROCODONE/CHLORPHEN 5 ML/OSYR ONE (18:47)
[2018-04-27] MEDS ORDERED: FAMOTIDINE 20 MG TAB ONE (18:48)
[2018-04-27] MEDS ORDERED: predniSONE 20 MG TAB ONE (18:48)
[2018-04-27 18:54] LABS: Arterial Blood Carboxyhemoglob 1.3 % (0-1.5); Blood Gas Oxyhemoglobin 90.2 % (94-97); Blood O2 Saturation 92.2 % (92-98.5)
[2018-04-27] MEDS ORDERED: AZITHROMYCIN 250 MG TAB ONE (19:07)
[2018-04-27 19:37] LABS: Absolute Lymphocytes (CBC) 2.2 K/uL (0.7-4.9); Absolute Monocytes 1.2 K/uL (0.1-1.3); Absolute Neutrophil 6.2 K/uL (1.8-8.0); Eosinophils % 0.3 % (0-4.4); Hematocrit 42.9 % (36.0-45.0); Lymphocytes % 22.8 % (15.3-44.8); MCH 28.9 pg (27.0-35.0); MPV 9.6 fL (7.6-11.3); Monocytes % 12.4 % (3.3-12.3); RBC Red Blood Cell Count 4.93 M/uL (3.86-4.86)
--- NOTE | 2018-04-27 19:47 | EDPHYS ---
Physician Documentation [facility] Name: Gabriella Rao Age: 72 yrs Sex: Female : 1945 Arrival Date: 04/27/2018 Time: 15:41 Bed 30 Private MD: out of town, doctor ED Physician Bassem Malone HPI: 04/27 19:04 This 72 yrs old Female presents to ER via Wheelchair with complaints of snw Cough, Headache, Weakness. 19:04 The patient or guardian reports airway noise, cough, difficulty breathing. Onset: The snw symptoms/episode began/occurred gradually, 1 month(s) ago. Severity of symptoms: At their worst the symptoms were moderate. Associated signs and symptoms: Pertinent positives: wheezing. The patient has experienced similar episodes in the past. other ED one month ago. Historical: - Allergies: 16:13 soap; aj 16:13 PENICILLINS; aj 16:13 Povidone-Iodine; aj 16:13 Sulfa (Sulfonamide Antibiotics); aj 16:18 Clindamycin; aj 16:18 Bacitracin; aj 16:18 Levofloxacin; aj 16:18 Nitrofurantoin Macrocrystal; aj 16:18 Elivil; aj 16:18 Minocycline; aj 16:18 Benadryl; aj - Home Meds: 16:18 levothyroxine 88 mcg tab 1 tab once daily [Active]; ropinirole 2 mg oral Tb24 2 tabs aj once daily [Active]; hydrocodone-acetaminophen 10-325 mg Oral tab 1 tab every 6 hours [Active]; furosemide 20 mg Oral tab 1 tab once daily [Active]; ProAir HFA 90 mcg/actuation inhalation HFAA 1 puff every 4 hours [Active]; alprazolam 1 mg Oral TbDL 1 tab 3 times per day [Active]; montelukast 10 mg oral tab 1 tab once daily [Active]; gabapentin 400 mg oral cap 1 cap 3 times per day [Active]; - PMHx: 16:18 Hypertension; Chronic pain; Hyperlipidemia; COPD; aj - PSHx: 16:13 massiel lumpectomy; colon resection; Appendectomy; Cholecystectomy; spleenectomy; aj Hysterectomy; - Immunization history:: Adult Immunizations up to date. - Social history:: Smoking status: Patient/guardian denies using tobacco. - Ebola Screening: : Patient negative for fever greater than or equal to 101.5 degrees Fahrenheit, and additional compatible Ebola Virus Disease symptoms Patient denies exposure to infectious person Patient denies travel to an Ebola-affected area in the 21 days before illness onset No symptoms or risks identified at this time. ROS: 19:04 Constitutional: Negative for fever, chills, and weight loss, Eyes: Negative for injury, snw pain, redness, and discharge, ENT: Negative for injury, pain, and discharge, Neck: Negative for injury, pain, and swelling, Cardiovascular: Negative for chest pain, palpitations, and edema, Abdomen/GI: Negative for abdominal pain, nausea, vomiting, diarrhea, and constipation, Back: Negative for injury and pain, : Negative for injury, bleeding, discharge, and swelling, MS/Extremity: Negative for injury and deformity, Skin: Negative for injury, rash, and discoloration, Neuro: Negative for headache, weakness, numbness, tingling, and seizure. 19:04 Respiratory: Positive for cough, x 1 month. Exam: 19:03 Constitutional: This is a well developed, well nourished patient who is awake, alert, snw and in no acute distress. Head/Face: Normocephalic, atraumatic. Eyes: Pupils equal round and reactive to light, extra-ocular motions intact. Lids and lashes normal. Conjunctiva and sclera are non-icteric and not injected. Cornea within normal limits. Periorbital areas with no swelling, redness, or edema. ENT: Nares patent. No nasal discharge, no septal abnormalities noted. Tympanic membranes are normal and external auditory canals are clear. Oropharynx with no redness, swelling, or masses, exudates, or evidence of obstruction, uvula midline. Mucous membranes moist. Neck: Trachea midline, no thyromegaly or masses palpated, and no cervical lymphadenopathy. Supple, full range of motion without nuchal rigidity, or vertebral point tenderness. No Meningismus. Chest/axilla: Normal chest wall appearance and motion. Nontender with no deformity. No lesions are appreciated. Cardiovascular: Regular rate and rhythm with a normal S1 and S2. No gallops, murmurs, or rubs. Normal PMI, no JVD. No pulse deficits. Abdomen/GI: Soft, non-tender, with normal bowel sounds. No distension or tympany. No guarding or rebound. No evidence of tenderness throughout. Back: No spinal tenderness. No costovertebral tenderness. Full range of motion. Skin: Warm, dry with normal turgor. Normal color with no rashes, no lesions, and no evidence of cellulitis. MS/ Extremity: Pulses equal, no cyanosis. Neurovascular intact. Full, normal range of motion. Neuro: Awake and alert, GCS 15, oriented to person, place, time, and situation. Cranial nerves II-XII grossly intact. Motor strength 5/5 in all extremities. Sensory grossly intact. Cerebellar exam normal. Normal gait. 19:03 Respiratory: the patient does not display signs of respiratory distress, Respirations: labored breathing, accessory muscle usage, shallow respirations, tachypnea, Breath sounds: wheezing: that is severe, is heard diffusely. Vital Signs: 16:13 BP 111 / 53; Pulse 104; Resp 20; Temp 98.8; Pulse Ox 98% on R/A; Weight 83.46 kg; aj Height 5 ft. 0 in. (152.40 cm); 17:12 BP 115 / 72; Pulse 99; Resp 18; Temp 98.9; Pulse Ox 100% on R/A; Pain 0/10; mg2 18:26 BP 129 / 81; Pulse 102; Resp 21; Pulse Ox 100% on R/A; Pain 0/10; mg2 19:32 BP 142 / 61; Pulse 101; Resp 18; Pulse Ox 100% on R/A; Pain 0/10; mg2 20:41 BP 125 / 64; Pulse 100; Resp 18; Temp 98.7; Pulse Ox 100% on 2 lpm NC; Pain 0/10; mg2 16:13 Body Mass Index 35.93 (83.46 kg, 152.40 cm) aj MDM: 17:09 Patient medically screened. snw 19:46 Data reviewed: vital signs, nurses notes. Data interpreted: Pulse oximetry: on room air snw is 95 %. Interpretation: hypoxia. Plan: will initiate a nebulizer treatment. Counseling: I had a detailed discussion with the patient and/or guardian regarding: the historical points, exam findings, and any diagnostic results supporting the discharge/admit diagnosis, the presence of at least one elevated blood pressure reading (>120/80) during this emergency department visit, lab results, radiology results, the need for further work-up and treatment in the hospital. Physician consultation: Tyra Leon MD was called at 19:47, was contacted at 19:47, regarding admission, to the telemetry unit. 04/27 16:43 Order name: Flu; Complete Time: 17:34 snw 04/27 18:34 Order name: ABG; Complete Time: 18:59 snw 04/27 16:43 Order name: Chest Pa And Lat (2 Views) XRAY; Complete Time: 18:52 snw 04/27 18:54 Order name: CBC with Diff; Complete Time: 20:01 snw 04/27 18:54 Order name: Chem 7; Complete Time: 20:01 snw 04/27 18:54 Order name: Blood Culture Adult (2) snw 04/27 18:54 Order name: Oxygen Per Protocol; Complete Time: 19:22 snw Administered Medications: 17:16 Drug: Albuterol - atroVENT (3:1) (2.5 mg - 0.5 mg) 3 ml Route: Nebulizer; mg2 18:27 Follow up: Response: No adverse reaction; Wheezing unchanged mg2 18:43 Drug: Pepcid 20 mg Route: PO; mg2 18:44 Drug: Tussionex Pennkinetic ER 5 ml Route: PO; mg2 18:44 Drug: predniSONE 60 mg Route: PO; mg2 19:22 Drug: Zithromax 500 mg Route: PO; mg2 20:15 Drug: Potassium Effervescent Tablet 50 mEq Route: PO; mg2 Disposition: 04/28 13:56 Co-signature as Attending Physician, Bassem Malone MD I agree with the assessment and kdr plan of care. Disposition: 04/27/18 19:46 Hospitalization ordered by Tyra Leon for Observation. Preliminary diagnosis are Chronic obstructive pulmonary disease with (acute) exacerbation, Hypoxemia. - Bed requested for Telemetry/MedSurg (observation). - Status is Observation. mg2 - Condition is Stable. - Problem is an acute exacerbation. - Symptoms are unchanged. UTI on Admission? No Signatures: Dispatcher [employer] EDMS Ale Peters RN RN aj Rittger, Kevin, MD MD kdr Therrien, Shelly, PLUNGER SHOVEL OPERATOR-C PLUNGER SHOVEL OPERATOR-Csnw Laura Álvarez RN RN Gardose, Aron, RN RN mg2 Corrections: (The following items were deleted from the chart) 04/27 20:36 19:46 Hospitalization Ordered by Tyra Leon MD for Observation. Preliminary cg diagnosis is Chronic obstructive pulmonary disease with (acute) exacerbation; Hypoxemia. Bed requested for Telemetry/MedSurg (observation). Status is Observation. Condition is Stable. Problem is an acute exacerbation. Symptoms are unchanged. UTI on Admission? No. snw 21:49 20:36 04/27/2018 19:46 Hospitalization Ordered by Tyra Leon MD for Observation. mg2 Preliminary diagnosis is Chronic obstructive pulmonary disease with (acute) exacerbation; Hypoxemia. Bed requested for Telemetry/MedSurg (observation). Status is Observation. Condition is Stable. Problem is an acute exacerbation. Symptoms are unchanged. UTI on Admission? No. cg
--- NOTE | 2018-04-27 19:47 | ER ---
Nurse's Notes [facility] Name: Gabriella Rao Age: 72 yrs Sex: Female : 1945 Arrival Date: 04/27/2018 Time: 15:41 Bed 30 Private MD: out of town, doctor Diagnosis: Chronic obstructive pulmonary disease with (acute) exacerbation;Hypoxemia Presentation: 04/27 16:11 Presenting complaint: Patient states: Body aches, cough for 4 week. Seen by [facility] and aj given Z pack 3 weeks ago. Patient has not followed up with PCP. Transition of care: patient was not received from another setting of care. Onset of symptoms was March 27, 2018. Risk Assessment: Do you want to hurt yourself or someone else? Patient reports no desire to harm self or others. Initial Sepsis Screen: Does the patient meet any 2 criteria? No. Patient's initial sepsis screen is negative. Does the patient have a suspected source of infection? No. Patient's initial sepsis screen is negative. Care prior to arrival: None. 16:11 Method Of Arrival: Wheelchair aj 16:11 Acuity: DAVID 3 aj Triage Assessment: 16:13 Headache History: The patient has had previous headaches. General: Appears in no aj apparent distress. uncomfortable, Behavior is calm, cooperative, appropriate for age. Pain: Complains of pain in entire body. Neuro: Level of Consciousness is awake, alert, obeys commands, Oriented to person, place, time, situation, Appropriate for age. Respiratory: Reports cough that is Airway is patent Respiratory effort is even, unlabored, Respiratory pattern is regular, symmetrical. Derm: Skin is intact, is healthy with good turgor, Skin is pink, warm \T\ dry. normal. 17:12 Pain: Denies pain. Pain Pain began. mg2 18:27 Pain: Also complains of shortness of breath. mg2 Historical: - Allergies: 16:13 soap; aj 16:13 PENICILLINS; aj 16:13 Povidone-Iodine; aj 16:13 Sulfa (Sulfonamide Antibiotics); aj 16:18 Clindamycin; aj 16:18 Bacitracin; aj 16:18 Levofloxacin; aj 16:18 Nitrofurantoin Macrocrystal; aj 16:18 Elivil; aj 16:18 Minocycline; aj 16:18 Benadryl; aj - Home Meds: 16:18 levothyroxine 88 mcg tab 1 tab once daily [Active]; ropinirole 2 mg oral Tb24 2 tabs aj once daily [Active]; hydrocodone-acetaminophen 10-325 mg Oral tab 1 tab every 6 hours [Active]; furosemide 20 mg Oral tab 1 tab once daily [Active]; ProAir HFA 90 mcg/actuation inhalation HFAA 1 puff every 4 hours [Active]; alprazolam 1 mg Oral TbDL 1 tab 3 times per day [Active]; montelukast 10 mg oral tab 1 tab once daily [Active]; gabapentin 400 mg oral cap 1 cap 3 times per day [Active]; - PMHx: 16:18 Hypertension; Chronic pain; Hyperlipidemia; COPD; aj - PSHx: 16:13 massiel lumpectomy; colon resection; Appendectomy; Cholecystectomy; spleenectomy; aj Hysterectomy; - Immunization history:: Adult Immunizations up to date. - Social history:: Smoking status: Patient/guardian denies using tobacco. - Ebola Screening: : Patient negative for fever greater than or equal to 101.5 degrees Fahrenheit, and additional compatible Ebola Virus Disease symptoms Patient denies exposure to infectious person Patient denies travel to an Ebola-affected area in the 21 days before illness onset No symptoms or risks identified at this time. Screenin:01 Abuse screen: Denies threats or abuse. Denies injuries from another. Nutritional mg2 screening: No deficits noted. Tuberculosis screening: No symptoms or risk factors identified. Fall Risk None identified. Assessment: 17:10 General: Appears in no apparent distress. comfortable, Behavior is calm, cooperative. mg2 Pain: Denies pain. Neuro: Level of Consciousness is awake, alert, obeys commands, Oriented to person, place, time, situation. Cardiovascular: Capillary refill < 3 seconds Patient's skin is warm and dry. Respiratory: Airway is patent Respiratory effort is even, unlabored, Respiratory pattern is regular, symmetrical, Breath sounds with wheezes bilaterally. Respiratory: patient is coughing. GI: No signs and/or symptoms were reported involving the gastrointestinal system. : No signs and/or symptoms were reported regarding the genitourinary system. EENT: No signs and/or symptoms were reported regarding the EENT system. Derm: Skin is intact, is healthy with good turgor, Skin is pink, warm \T\ dry. normal. Musculoskeletal: No deficits noted. 18:27 Reassessment: still wheezing bilaterally. mg2 Vital Signs: 16:13 BP 111 / 53; Pulse 104; Resp 20; Temp 98.8; Pulse Ox 98% on R/A; Weight 83.46 kg; aj Height 5 ft. 0 in. (152.40 cm); 17:12 BP 115 / 72; Pulse 99; Resp 18; Temp 98.9; Pulse Ox 100% on R/A; Pain 0/10; mg2 18:26 BP 129 / 81; Pulse 102; Resp 21; Pulse Ox 100% on R/A; Pain 0/10; mg2 19:32 BP 142 / 61; Pulse 101; Resp 18; Pulse Ox 100% on R/A; Pain 0/10; mg2 20:41 BP 125 / 64; Pulse 100; Resp 18; Temp 98.7; Pulse Ox 100% on 2 lpm NC; Pain 0/10; mg2 16:13 Body Mass Index 35.93 (83.46 kg, 152.40 cm) aj ED Course: 15:41 Patient arrived in ED. mr 15:43 out of town, doctor is Private Physician. mr 16:12 Triage completed. aj 16:18 Arm band placed on right wrist. Patient placed in waiting room, Patient notified of wait time. 16:43 [facility] snw 16:43 Bassem Malone MD is Attending Physician. snw 17:00 Aron Fletcher, VERA is Primary Nurse. mg2 17:00 Flu and/or RSV swab sent to lab. jp3 17:01 Flu Sent. jp3 17:11 Patient has correct armband on for positive identification. Pulse ox on. NIBP on. Door mg2 closed. Warm blanket given. 17:12 No provider procedures requiring assistance completed. mg2 18:18 Chest Pa And Lat (2 Views) XRAY In Process Unspecified. EDMS 19:45 Tyra Leon MD is Hospitalizing Provider. snw 21:19 Patient admitted, IV remains in place. mg2 Administered Medications: 17:16 Drug: Albuterol - atroVENT (3:1) (2.5 mg - 0.5 mg) 3 ml Route: Nebulizer; mg2 18:27 Follow up: Response: No adverse reaction; Wheezing unchanged mg2 18:43 Drug: Pepcid 20 mg Route: PO; mg2 18:44 Drug: Tussionex Pennkinetic ER 5 ml Route: PO; mg2 18:44 Drug: predniSONE 60 mg Route: PO; mg2 19:22 Drug: Zithromax 500 mg Route: PO; mg2 20:15 Drug: Potassium Effervescent Tablet 50 mEq Route: PO; mg2 Outcome: 19:46 Decision to Hospitalize by Provider. snw 21:19 Admitted to Tele mg2 21:19 Admitted to Tele accompanied by tech, via stretcher, with oxygen, with chart, Report called to VERA Albarado 21:19 Condition: stable 21:19 Instructed on the need for admit. 21:49 Patient left the ED. mg2 Signatures: Dispatcher [employer] Ale Barney RN RN aj Therrien, Shelly, HAND MOLD MAKER-C HAND MOLD MAKER-Csnw Jennifer Thornton Michele, RN RN mg2 Hemant Dallas jp3
[2018-04-27 19:51] LABS: Potassium 3.1 mmol/L (3.5-5.1)
[2018-04-27] MEDS ORDERED: POTASSIUM 25 MEQ EFFERV TAB ONE (20:17)
[2018-04-27] MEDS ORDERED: ONDANSETRON 4 MG/2 ML VIAL IV PRN (22:13)
[2018-04-27] MEDS ORDERED: ALBUTEROL 2.5 MG/3 ML NEB SOL NEB PRN (22:18)
[2018-04-27] MEDS ORDERED: IPRATROPIUM BROM 0.5MG/2.5ML NEB PRN (22:18)
--- NOTE | 2018-04-27 22:38 | P.HP ---
Certification for Inpatient Patient admitted to: Observation With expected LOS: <2 Midnights Practitioner: I am a practitioner with admitting privileges, knowledge of patient current condition, hospital course, and medical plan of care. Services: Services provided to patient in accordance with Admission requirements found in Title 42 Section 412.3 of the Code of Federal Regulations Patient History Date of Service: 04/27/18 Reason for admission: COPD exacerbation History of Present Illness: Ms Rao is a 72-year-old woman with history of COPD, hypertension, dyslipidemia, who start about 4 weeks ago with progressive shortness of breath and dry cough. She denied any fever initially. 3 weeks ago she went, to [facility] and she had a course of antibiotics. However, her symptoms did not improve, in fact they got worse. 2 days ago she had fever 102.1 F. Today she decided to come to the ER for evaluation due to lack of improvement, she also became very weak. Lab work remarkable for normal WBC count, and taken procalcitonin are pending, ABG showed pH 7.52, CO2 30.1 and O2 57.2. Chest x-ray remarkable for bilateral infiltrate consistent with pneumonitis VS Pneumonia. Allergies Penicillins Allergy (Unverified 10/09/14 18:06) Unknown povidone-iodine [From Betadine] Allergy (Unverified 10/09/14 18:06) Unknown soap [From Betadine] Allergy (Unverified 10/09/14 18:06) Unknown Adhesives Allergy (Uncoded 10/09/14 18:06) Unknown sulfur Allergy (Uncoded 10/09/14 18:06) Unknown - Past Medical/Surgical History -: COPD -: Hypertension -: Dyslipidemia -: massiel lumpectomy; colon resection; Appendectomy; Cholecystectomy; spleenectom - Family History Family History: Reviewed- Non-Contributory - Social History Smoking Status: Current every day smoker Counseled patient to stop smoking for: less than 10 minutes Alcohol use: No CD- Drugs: No Place of Residence: Home Review of Systems 10-point ROS is otherwise unremarkable Physical Examination - Vital Signs Temperature: 98.9 F Blood Pressure: 142/61 Pulse: 101 Respirations: 18 - Physical Exam General: Alert, In no apparent distress HEENT: Atraumatic, PERRLA, Mucous membr. moist/pink, EOMI, Sclerae nonicteric Neck: Supple, 2+ carotid pulse no bruit, No LAD, Without JVD or thyroid abnormality Respiratory: Diminished, Crackles/rales (Basilar crackles), Expiratory wheezes Cardiovascular: Regular rate/rhythm, Normal S1 S2 Gastrointestinal: Normal bowel sounds, No tenderness Musculoskeletal: No tenderness Integumentary: No rashes Neurological: Normal speech, Normal strength at 5/5 x4 extr, Normal tone, Normal affect Lymphatics: No axilla or inguinal lymphadenopathy - Studies Laboratory Data (last 24 hrs) 04/27/18 19:05: Sodium 137, Potassium 3.1 L, BUN 10, Creatinine 1.30, Glucose 197 H 04/27/18 19:05: WBC 9.7, Hgb 14.2, Hct 42.9, Plt Count 209 Microbiology Data (last 24 hrs): 04/27/18 17:00 Nasopharnyx Influenza Type A Antigen Screen - Final 04/27/18 17:00 Nasopharnyx Influenza Type B Antigen Screen - Final Assessment and Plan - Problems (Diagnosis) (1) Acute respiratory failure Current Visit: Yes Status: Acute Qualifiers: Respiratory failure complication: hypoxia Qualified Code(s): J96.01 - Acute respiratory failure with hypoxia (2) COPD exacerbation Current Visit: Yes Status: Acute (3) Hypertension Current Visit: Yes Status: Acute Qualifiers: Hypertension type: essential hypertension Qualified Code(s): I10 - Essential (primary) hypertension (4) Pneumonitis Current Visit: Yes Status: Acute - Plan The patient will be admitted to the hospital due to acute respiratory failure with hypoxemia secondary to COPD exacerbation, possible due to pneumonitis versus pneumonia. Will start empiric antibiotic treatment, since the patient has a long list of allergy medication, will order aztreonam. Also IV steroids and breathing treatment as needed. Consult roaster helper for evaluation recommendation. - Advance Directives Does patient have a Living Will: No Does patient have a Durable POA for Healthcare: No - Code Status/Comfort Care Code Status Assessed: Yes Code Status: Full Code
[2018-04-28] MEDS: NA CHLORIDE 0.9% 1,000 ML IV SCH ×2 (00:38→10:05)
[2018-04-28] MEDS: METHYLPREDNISOLONE 40 MG INJ IV SCH ×2 (00:39→05:38)
[2018-04-28] MEDS ORDERED: AZTREONAM 1 GM/VIAL IV SCH (01:00)
[2018-04-28] MEDS: guaiFENesin 100 MG/5 ML UCUP PO PRN ×2 (02:07→21:39)
[2018-04-28 04:51] LABS: Absolute Lymphocytes (CBC) 0.5 K/uL (0.7-4.9); Absolute Monocytes 0.1 K/uL (0.1-1.3); Absolute Neutrophil 6.6 K/uL (1.8-8.0); Basophils % 0.1 % (0-1.3); Hematocrit 39.1 % (36.0-45.0); MCH 28.7 pg (27.0-35.0); MCV 87.5 fL (80-100); Monocytes % 1.2 % (3.3-12.3); RBC Red Blood Cell Count 4.47 M/uL (3.86-4.86)
[2018-04-28 05:06] LABS: Potassium 3.7 mmol/L (3.5-5.1)
[2018-04-28] MEDS ORDERED: D50W 25 GM/50 ML SYRINGE IV PRN (05:23)
[2018-04-28] MEDS ORDERED: GLUCAGON 1 MG/VIAL IM PRN (05:23)
[2018-04-28 05:25] LABS: Blood Morphology Comment NOT SEEN (NOT SEEN); Platelet Estimate ADEQ
[2018-04-28] MEDS: ACETAMINOPHEN 500 MG TAB PO PRN (05:36)
[2018-04-28] MEDS: INSULIN -REGULAR HUMAN 50 UNIT/0.5 ML ML SQ SCH ×4 (07:30→21:34)
[2018-04-28] MEDS ORDERED: INFLUENZA VACCINE (for 3y+) 0.5 ML DOSE IMVAC ONE (08:00)
[2018-04-28] MEDS ORDERED: AZTREONAM 1 GM in NA CHLORIDE 0.9% 50 ML IV SCH (09:00)
[2018-04-28] MEDS: ENOXAPARIN 40 MG/0.4 ML SQ SCH (10:04)
--- NOTE | 2018-04-28 14:21 | P.PN ---
Subjective Date of Service: 04/28/18 Chief Complaint: COPD exacerbation Patient seen and examined at bedside with RN. Chart reviewed. Case discussed with pulmonology at this time. Currently patient doing well. It does appear to be anxious regarding her elevated blood sugar. However educated on the reason behind elevated blood sugar due to her being on steroids. She is on cannula. Does not use home ox Review of Systems 10-point ROS is otherwise unremarkable Physical Examination - Vital Signs Temperature: 97.9 F Blood Pressure: 125/78 Pulse: 98 Respirations: 20 Pulse Ox (%): 95 - Physical Exam General: Alert, In no apparent distress HEENT: Atraumatic, PERRLA, EOMI Neck: Supple, JVD not distended Respiratory: Normal air movement, Crackles/rales, Expiratory wheezes, Inspiratory wheezes Cardiovascular: Regular rate/rhythm, Normal S1 S2 Gastrointestinal: Normal bowel sounds, No tenderness Musculoskeletal: No tenderness Integumentary: No rashes Neurological: Normal speech, Normal tone, Normal affect Lymphatics: No axilla or inguinal lymphadenopathy - Studies Laboratory Data (last 24 hrs) 04/27/18 19:05: Sodium 137, Potassium 3.1 L, BUN 10, Creatinine 1.30, Glucose 197 H 04/27/18 19:05: WBC 9.7, Hgb 14.2, Hct 42.9, Plt Count 209 Microbiology Data (last 24 hrs): 04/27/18 17:00 Nasopharnyx Influenza Type A Antigen Screen - Final 04/27/18 17:00 Nasopharnyx Influenza Type B Antigen Screen - Final Medications List Reviewed: Yes Assessment And Plan - Current Problems (Diagnosis) (1) Acute respiratory failure Current Visit: Yes Status: Acute Plan: Acute Respiratory failure 2.2 to COPD exacerbation -Currently on NC. Wean As tolerated -Dueonebs, Steriods changed to PO and oxygen for now Qualifiers: Respiratory failure complication: hypoxia Qualified Code(s): J96.01 - Acute respiratory failure with hypoxia (2) COPD exacerbation Current Visit: Yes Status: Acute Plan: See # 1 (3) Hypertension Current Visit: Yes Status: Chronic Qualifiers: Hypertension type: essential hypertension Qualified Code(s): I10 - Essential (primary) hypertension Discharge Plan: Home Plan to discharge in: 48 Hours - Code Status/Comfort Care Code Status Assessed: Yes Critical Care: No
[2018-04-28] MEDS: ROPINIROLE HCL 1 MG TAB PO SCH (21:34)
[2018-04-28] MEDS: predniSONE 10 MG TAB PO SCH (21:35)
[2018-04-28] MEDS: ALPRAZOLAM 1 MG TABLET PO PRN (21:39)
[2018-04-29] MEDS: LEVOTHYROXINE SOD 0.088 MG TAB PO SCH (05:45)
[2018-04-29] MEDS: INSULIN -REGULAR HUMAN 50 UNIT/0.5 ML ML SQ SCH ×4 (09:17→21:57)
[2018-04-29] MEDS: CARISOPRODOL 350 MG TAB PO SCH (09:19)
[2018-04-29] MEDS: MONTELUKAST 10 MG TAB PO SCH (09:20)
[2018-04-29] MEDS: FUROSEMIDE 20 MG TABLET PO SCH (09:20)
[2018-04-29] MEDS: ROPINIROLE HCL 1 MG TAB PO SCH ×2 (09:21→21:56)
[2018-04-29] MEDS: predniSONE 10 MG TAB PO SCH ×2 (09:21→21:56)
[2018-04-29] MEDS: ENOXAPARIN 40 MG/0.4 ML SQ SCH (09:22)
--- NOTE | 2018-04-29 11:13 | P.CNS ---
Date of Consult: 04/28/18 Chief Complaint: COPD exacerbation History of Present Illness: Patient is 72 years of age has been having problems for the past month increasing shortness of breath history of COPD she went to [facility] twice and appeared in the emergency room and was admitted currently does not smoke she has a nebulizer and Advair and pro air at home does not see a card stripper feeling a little better denies any cough sputum hemoptysis or chest pain Allergies Penicillins Allergy (Verified 04/28/18 10:03) Unknown povidone-iodine [From Betadine] Allergy (Verified 04/28/18 10:03) Unknown soap [From Betadine] Allergy (Verified 04/28/18 10:03) Unknown Adhesives Allergy (Uncoded 04/28/18 10:03) Unknown sulfur Allergy (Uncoded 04/28/18 10:03) Unknown Home Medications: ALPRAZolam [Xanax*] 1 mg PO TID PRN 04/27/18 Albuterol Inhaler [Ventolin Inhaler*] 2 puff IH Q6H PRN 04/27/18 Albuterol Sulfate [Proair Hfa] 90 mcg IH PRN PRN 04/27/18 Carisoprodol [Soma] 350 mg PO DAILY 04/27/18 Furosemide [Lasix*] 20 mg PO DAILY 04/27/18 Ipratropium [place] 0.2 mg IH PRN PRN 04/27/18 Levothyroxine [Synthroid*] 88 mcg PO [id number] 04/27/18 Montelukast [Singulair*] 10 mg PO DAILY 04/27/18 Ropinirole HCl 2 mg PO BID 04/27/18 Prednisone [Sterapred Ds] 10 mg PO BID #60 tab.ds.pk 04/29/18 Umeclidinium [place]els[place] [Incruse Ellipta] 62.5 mcg IH DAILY #1 blst.w.dev 04/29/18 - Past Medical/Surgical History Diabetic: No -: COPD -: Hypertension -: Dyslipidemia -: Fibromyalgia -: massiel lumpectomy; colon resection; Appendectomy; Cholecystectomy; spleenectom - Family History Father Medical History: Cancer Mother Medical History: Heart disease - Social History Alcohol use: No CD- Drugs: No Caffeine use: Yes Place of Residence: Home Review of Systems 10-point ROS is otherwise unremarkable General: Weakness Respiratory: Cough, Shortness of Breath Physical Examination Temp Pulse Resp BP Pulse Ox 97.5 F 83 20 119/63 93 04/29/18 08:00 04/29/18 09:20 04/29/18 08:00 04/29/18 09:20 04/29/18 08:00 General: Alert, Oriented x3 HEENT: PERRLA Respiratory: Rhonchi/gurgles Cardiovascular: No edema, Normal S1 S2 Gastrointestinal: Normal bowel sounds, Soft and benign Musculoskeletal: No clubbing, No swelling - Problems (1) COPD exacerbation Onset Date: 04/28/18 Current Visit: Yes Status: Acute Plan: Patient is 72 years of age admitted with COPD exacerbation she does have Advair pro air at home I recommend adding Spiriva and low-dose prednisone 10 mg twice a day for 10 days and no evidence of sepsis chest x-rays clear to follow main no 1-2 weeks outpatient pulmonary function testing patient was mildly hypoxic to check if she qualifies for home O2
--- NOTE | 2018-04-29 16:09 | P.DS ---
Admission Date: 04/27/18 Discharge Date: 04/29/18 Disposition: ROUTINE DISCHARGE Discharge Condition: GOOD Reason for Admission: COPD exacerbation - Problems (1) Acute respiratory failure Onset Date: 04/28/18 Current Visit: Yes Status: Acute Qualifiers: Respiratory failure complication: hypoxia Qualified Code(s): J96.01 - Acute respiratory failure with hypoxia (2) COPD exacerbation Onset Date: 04/28/18 Current Visit: Yes Status: Acute (3) Hypertension Onset Date: 04/28/18 Current Visit: Yes Status: Chronic Qualifiers: Hypertension type: essential hypertension Qualified Code(s): I10 - Essential (primary) hypertension Brief History of Present Illness: Ms Rao is a 72-year-old woman with history of COPD, hypertension, dyslipidemia, who start about 4 weeks ago with progressive shortness of breath and dry cough. She denied any fever initially. 3 weeks ago she went, to [facility] and she had a course of antibiotics. However, her symptoms did not improve, in fact they got worse. 2 days ago she had fever 102.1 F. Today she decided to come to the ER for evaluation due to lack of improvement, she also became very weak. Lab work remarkable for normal WBC count, and taken procalcitonin are pending, ABG showed pH 7.52, CO2 30.1 and O2 57.2. Chest x-ray remarkable for bilateral infiltrate consistent with pneumonitis VS Pneumonia. Hospital Course: Overall during the hospital stay patient remained stable The patient was initially admitted to the hospital for COPD exacerbation was started on duo nebs, steroids, BiPAP initially. Patient had marked resolution of her symptoms after the duo nebs and steroids and thus was weaned off of BiPAP to nasal cannula. Patient did well overall while here in the hospital. Patient was seen by and pulmonology here in the hospital as well who recommended the patient to be discharged home safely on oral steroids and her inhalers that she takes at home along with p.r.n. nebulizer. Patient then was discharged home under stable condition and was asked to follow up with primary care provider and pulmonology in about 1-2 days post discharge. Patient does not have oxygen at home and did not qualify for oxygen during this visit. Vital Signs/Physical Exam: Temp Pulse Resp BP Pulse Ox 97.3 F 92 H 20 121/54 L 96 04/29/18 12:00 04/29/18 12:00 04/29/18 12:00 04/29/18 12:00 04/29/18 12:00 General: Alert, In no apparent distress HEENT: Atraumatic, PERRLA, EOMI Neck: Supple, JVD not distended Respiratory: Clear to auscultation bilaterally, Normal air movement Cardiovascular: Regular rate/rhythm, Normal S1 S2 Gastrointestinal: Normal bowel sounds, No tenderness Musculoskeletal: No tenderness Integumentary: No rashes Neurological: Normal speech, Normal tone, Normal affect Lymphatics: No axilla or inguinal lymphadenopathy Laboratory Data at Discharge: WBC 7.2 K/uL (4.3-10.9) D 04/28/18 03:58 Hgb 12.8 g/dL (12.0-15.0) 04/28/18 03:58 Hct 39.1 % (36.0-45.0) 04/28/18 03:58 Plt Count 214 K/uL (152-406) 04/28/18 03:58 Sodium 135 mmol/L (136-145) L 04/28/18 03:58 Potassium 3.7 mmol/L (3.5-5.1) 04/28/18 03:58 BUN 13 mg/dL (7-18) 04/28/18 03:58 Creatinine 1.60 mg/dL (0.55-1.3) H 04/28/18 03:58 Glucose 441 mg/dL (74-106) H* 04/28/18 03:58 Home Medications: ALPRAZolam [Xanax*] 1 mg PO TID PRN 04/27/18 Albuterol Inhaler [Ventolin Inhaler*] 2 puff IH Q6H PRN 04/27/18 Albuterol Sulfate [Proair Hfa] 90 mcg IH PRN PRN 04/27/18 Carisoprodol [Soma] 350 mg PO DAILY 04/27/18 Furosemide [Lasix*] 20 mg PO DAILY 04/27/18 Ipratropium [place] 0.2 mg IH PRN PRN 04/27/18 Levothyroxine [Synthroid*] 88 mcg PO [id number] 04/27/18 Montelukast [Singulair*] 10 mg PO DAILY 04/27/18 Ropinirole HCl 2 mg PO BID 04/27/18 Prednisone [Sterapred Ds] 10 mg PO BID #60 tab.ds.pk 04/29/18 Umeclidinium [place] [Incruse Ellipta] 62.5 mcg IH DAILY #1 blst.w.dev 04/29/18 New Medications: Prednisone [Sterapred Ds] 10 mg PO BID #60 tab.ds.pk Umeclidinium [place] [Incruse Ellipta] 62.5 mcg IH DAILY #1 blst.w.dev Diet: Regular Activity: Ad uzma Followup: Scott Flores MD [ACTIVE - CAN ADMIT] - (Follow up in office in 2 weeks. Call to schedule an appointment.) Deny Souza MD [ACTIVE - CAN ADMIT] - (Follow up in office in 2 weeks. Call to schedule an appointment.)
[2018-04-29] MEDS: ACETAMINOPHEN 500 MG TAB PO PRN (18:31)
[2018-04-29] MEDS: ALPRAZOLAM 1 MG TABLET PO PRN (18:32)
[2018-04-30] MEDS: ACETAMINOPHEN 500 MG TAB PO PRN (01:14)
[2018-04-30] MEDS: guaiFENesin 100 MG/5 ML UCUP PO PRN (01:16)
[2018-04-30] MEDS: ALPRAZOLAM 1 MG TABLET PO PRN (06:09)
[2018-04-30] MEDS: LEVOTHYROXINE SOD 0.088 MG TAB PO SCH (06:09)
[2018-04-30] MEDS: INSULIN -REGULAR HUMAN 50 UNIT/0.5 ML ML SQ SCH (08:47)
[2018-04-30] MEDS: CARISOPRODOL 350 MG TAB PO SCH (08:48)
[2018-04-30] MEDS: ENOXAPARIN 40 MG/0.4 ML SQ SCH (08:48)
[2018-04-30] MEDS: MONTELUKAST 10 MG TAB PO SCH (08:48)
[2018-04-30] MEDS: predniSONE 10 MG TAB PO SCH (08:49)
[2018-04-30] MEDS: FUROSEMIDE 20 MG TABLET PO SCH (08:49)
[2018-04-30] MEDS: ROPINIROLE HCL 1 MG TAB PO SCH (08:49)
--- NOTE | 2018-04-30 09:48 | P.PN ---
Subjective Date of Service: 04/30/18 Chief Complaint: COPD exacerbation Patient seen and examined at bedside with RN. Chart reviewed. Case discussed with pulmonology at this time. Currently patient doing well. DC held Yesterday due to anxiety. DC today Review of Systems 10-point ROS is otherwise unremarkable Physical Examination - Vital Signs Temperature: 98.4 F Blood Pressure: 138/61 Pulse: 103 Respirations: 18 Pulse Ox (%): 95 - Physical Exam General: Alert, In no apparent distress HEENT: Atraumatic, PERRLA, EOMI Neck: Supple, JVD not distended Respiratory: Clear to auscultation bilaterally, Normal air movement Cardiovascular: Regular rate/rhythm, Normal S1 S2 Gastrointestinal: Normal bowel sounds, No tenderness Musculoskeletal: No tenderness Integumentary: No rashes Neurological: Normal speech, Normal tone, Normal affect Lymphatics: No axilla or inguinal lymphadenopathy - Studies Medications List Reviewed: Yes Assessment And Plan - Current Problems (Diagnosis) (1) Acute respiratory failure Onset Date: 04/28/18 Current Visit: Yes Status: Acute Plan: Acute Respiratory failure 2.2 to COPD exacerbation -Currently on NC. Wean As tolerated -Dueonebs, Steriods changed to PO and oxygen for now Qualifiers: Respiratory failure complication: hypoxia Qualified Code(s): J96.01 - Acute respiratory failure with hypoxia (2) COPD exacerbation Onset Date: 04/28/18 Current Visit: Yes Status: Acute Plan: See # 1 (3) Hypertension Onset Date: 04/28/18 Current Visit: Yes Status: Chronic Qualifiers: Hypertension type: essential hypertension Qualified Code(s): I10 - Essential (primary) hypertension
== END 2018-04-30 11:20 | disposition home health service (06) ==
LOC: ER 15:40 → ERHOLD 19:51 → 4TH 21:12
PROVIDERS: ADMIT Internal Medicine; ATTEND Internal Medicine
DX: J96.01 Acute respiratory failure with hypoxia (principal); J44.1 Chronic obstructive pulmonary disease with (acute) exacerbation; I10 Essential (primary) hypertension; E78.5 Hyperlipidemia, unspecified; Z23 Encounter for immunization; Z88.0 Allergy status to penicillin; Z88.2 Allergy status to sulfonamides
CPT/HCPCS: 36415 ×2; 71046; 80048 ×2; 82805; 82962 ×9; 83605 ×2; 84145; 85025 ×2; 87040 ×2; 87804 ×2; 94640; 94760 ×4; 99285; G0008; G0378 ×2; J1650 ×3; J2920 ×2; J7030 ×2; Q2035; J7512

== ENCOUNTER 2018-07-27 17:10 | Inpatient (IN) | payer OTHER ==
--- OUTSIDE RECORDS SUMMARY | 2018-07-27 17:14 | XMS REPORT | Continuity of Care Document ---
:1945 Author Organization Interface Problems Problem Status Onset Classification Date Comments Source Date Reported Discharge 11/01/19 11/03/2016 Diagnosis: Acute 17 [place] bronchitis Discharge 11/01/19 11/03/2016 Diagnosis: Acute 17 [place] laryngitis VOMITTING/ UPPER Active 11/01/19 [facility] 17 [facility] R10.84 - Active 09/09/19 [facility] GENERALIZED 17 [place] ABDOMINAL PAIN K43. Nicotine Abuse Active Diagnosis [...] Group IBS (<span Resolved Problem 10/03/2017 Medical ID="[id number]"> Group, Confirmed</span>) Elvis Yeh COPD Resolved Problem [...] 10/03/2017 Medical polyps Group, VIBHA BaezElvis Meyers [place] Hypothyroidism Active Problem 10/03/2017 Medical Group, VIBHA Baez,Elvis Meyers [place] Uterine cancer Resolved Problem 10/03/2017 Medical Group, VIBHA Baez,Elvis Meyers [place] Breast cancer Resolved Problem 10/03/2017 Medical Group, VIBHA BaezElvis Meyers [place] Ovarian cancer Resolved Problem 10/03/2017 Medical Group, VIBHA BaezElvis Meyers [place] Migraine Active Problem 10/03/2017 Medical Group, VIBHA BaezElvis Meyers [place] Migraines Resolved Problem 10/03/2017 Medical Group, VIBHA BaezElvis [place] Fibromyalgia Active Problem 10/03/2017 Medical Group, VIBHA Baez Luigi [place] Polyarthralgia Active Problem 10/03/2017 Medical Group Colitis Resolved Problem 10/03/2017 Medical Group, VIBHA BaezElvis Meyers [place] Obesity Active Problem 10/03/2017 Medical Group, VIBHA BaezElvis Meyers [place] Sciatica of right Active Problem 10/03/2017 Medical side Group Acrochordon Active Problem 10/03/2017 Medical Group Swelling of right Active Problem 10/03/2017 Medical lower extremity Group Cystocele with Active Problem 10/03/2017 Medical rectocele Group, VIBHA BaezElvis Meyers aSsha RLS (<span Resolved Problem 10/03/2017 Medical ID="[id number]"> Group, Confirmed</span>) Elvis Yeh Medications Medication Details Route Status Patient Ordering Order Source Instructions Provider Date rOPINIRole 2 mg 2 mg=1 tab, Active oral tablet PO, BID, # 2018 Medical 180 ea, 3 Group Refill(s), Pharmacy: [facility] montelukast 10 See Active mg oral tablet Instructions, 2018 Medical TAKE 1 TABLET Group BY MOUTH DAILY, # 90 tab, 3 Refill(s), Pharmacy: [facility] [id number] Fluticasone 1 puff, Active propionate 0.25 INHALATION, 2018 Medical MG/ACTUAT / BID, # 180 Group salmeterol 0.05 puff, 11 MG/ACTUAT Dry Refill(s), Powder Inhaler Pharmacy: [facility] [id number] 200 ACTUAT 180 Active Albuterol 0.09 microgram=2 2018 Medical MG/ACTUAT puff, Group Metered Dose INHALATION, Inhaler [ProAir QID, PRN PRN, HFA] # 3 ea, 3 Refill(s), Pharmacy: [facility] [id number] Furosemide 20 20 mg=1 tab, Active MH MG Oral Tablet PO, Daily, # 2018 Medical 90 tab, 3 Group Refill(s), Pharmacy: [facility] [id number] Levothroid 88 88 Active mcg (0.088 mg) microgram=1 2018 Medical oral tablet tab, PO, Group Daily, # 90 tab, 3 Refill(s), Pharmacy: [facility] [id number] Furosemide 20 20 mg=1 tab, Inactive MH MG Oral Tablet PO, Daily, # 2018 Medical 90 tab, 0 Group Refill(s) Acetaminophen 1 tab, Route: Inactive MH 325 MG / PO, Drug 2017 [place] Hydrocodone Form: TAB, Bitartrate 5 MG Dosing Weight Oral Tablet 74.545, kg, [[place] 5/325] ONCE, STAT, Start date: 10/31/16 18:03:00 CDT, Stop date: 10/31/16 18:03:00 CDT Prednisone 50 50 mg=1 tab, Active 10/31/ MH MG Oral Tablet PO, Daily, X 2017 Sasha 5 day, # 5 tab, 0 Refill(s) Acetaminophen 5 ml, PO, Active 10/31/ MH 24 MG/ML / Q6H, PRN 2017 [place] Codeine Cough, X 5 Phosphate 2.4 day, # 100 MG/ML Oral mL, 0 Solution Refill(s) tramadol 50 mg=1 tab, Active 10/31/ MH hydrochloride PO, Q4H, PRN 2017 [place] 50 MG Oral pain, X 3 Tablet [Ultram] day, # 20 tab, 0 Refill(s) Albuterol 0.833 9 mL, Route: Inactive MG/ML / NEB, Drug 2016 [place] Ipratropium Form: SOLN, [place] 0.167 Dosing Weight MG/ML Inhalant 74.545, kg, Solution PRN, PRN [DuoNeb] Respiratory Protocol, Start date: 10/31/16 16:35:00 CDT, Duration: 30 day, Stop date: 11/30/16 16:34:00 CDTNotes: (Same as: Duoneb) Prednisone 60 mg, Route: Inactive PO, Drug 2016 [place] form: TAB, ONCE, Dosing Weight 74.545, kg, Priority: STAT, Start date: 10/31/16 16:35:00 CDT, Stop date: 10/31/16 16:35:00 CDT Saline Flush 10 mL, Route: Inactive 0.9% IVP, Drug 2016 [place] Form: INJ, Dosing Weight 74.545, kg, PRN, PRN Line Flush, Start date: 10/31/16 15:16:00 CDT, Duration: 30 day, Stop date: 11/30/16 15:15:00 CDTNotes: (Same as: BD Posiflush) Chantix as directed Orally Active 0.5 MG X 11 & Mussaji Fabiano Starting Month 1 MG X 42 [facility] Deepak Orally use as directed Chantix 1 tablet Orally Active 1 MG Orally Mussaji Fabiano Twice a day [facility] Naftin 1 application Externally Active 2 % Mussaji Fabiano to affected Externally [facility] area Once a day Advair Diskus 1 puff Inhalation Active 250-50 Mussaji Fabiano MCG/DOSE [facility] Inhalation Twice a day Lyrica 1 capsule Orally Active 75 MG Orally Mussaji Fabiano Twice a day [facility] Chlorzoxazone 1 tablet Orally Active 500 MG Orally Mussaji Fabiano Three times a [facility] day Hydrocodone-APA as directed Orally Active 10-325 MG Mussaji Fabiano P-Dietary Prod Orally [facility] Alprazolam 1 tablet Orally Active 1 MG [...] Group, adult<sup>1</sup> needle OPID length: Sasha 25X1" [place] pneumococcal Right completed [facility] 13-valent vaccine 6 deltoid Group, [facility] [place],[facility] Hx pneumococcal completed [facility] vaccine 6 Group, [facility] influenza virus completed [facility] vaccine, 6 Group, inactivated [facility] [place],[facility] [place] Results Order Name Results Value Reference Date Interpretation Comments Source Range Spine Spine lumbar Study: Lumbar spine, 4 views 05/11 - [facility] lumbar 2 or 2 or 3 views /2017 - [place] 3 views DX DX Clinical Indication: - M54.16 Radiculopathy, lumbar region,M43.16 Spondylolisthesis, lumbar region Read by: Uday Foss MD Dictated Date/time: 05/11/18 14:06 Electronically Signed by: Uday Foss MD 05/11/18 14:07 FINAL REPORT Comparison: None FINDINGS: Multiple views of the lumbar spine show 5 nonrib-bearing lumbar vertebra. No acute compression fracture or subluxation is seen. Bones are demineralized. Mild marginal osteophytes throughout th e lumbar spine are seen. Moderate disc height loss at L2-L3 and L3-L4 are seen, compatible with moderate degenerative disc disease. Mild degenerative disease of the remaining lower lumbar spine is seen. No motion abnormality is present on the flexion or extension views. Arterial calcifications are present. IMPRESSION: Mild to moderate multilevel degenerative disc disease of the lumbar spine. SL: [id number] URINE AND UA Blood Small Negative 10/31 [facility] [place] *ABN* (10/31/16 6:09 PM) URINE AND UA 0.2 EU/dL 0.1 - 1.0 10/31 [facility] Urobilinogen /2016 [place] URINE AND UA pH 6.5 5.0 - 8.0 10/31 [place] URINE AND UA Protein Negative Negative 10/31 [facility] [place] (10/31/16 6:09 PM) URINE AND UA Bili Negative Negative 10/31 [place] *NA* (10/31/16 6:09 PM) URINE AND UA Ketones Negative Negative 10/31 [facility] [place] *NA* (10/31/16 6:09 PM) URINE AND UA Sq Epi Many /LPF Few /LPF 10/31 [place] URINE AND UA Leuk Est Large Negative 10/31 [facility] [place] *ABN* (10/31/16 6:09 PM) URINE AND UA Glucose Negative Negative 10/31 [facility] [place] (10/31/16 6:09 PM) URINE AND UA Nitrite Negative Negative 10/31 [facility] [place] (10/31/16 6:09 PM) URINE AND UA Bacteria Moderate None Seen 10/31 [facility] /HPF /HPF [place] URINE AND UA RBC 0-2 /HPF 0 - 2 10/31 [facility] [place] URINE AND UA WBC 11-20 /HPF None Seen 10/31 [facility] /HPF [place] URINE AND UA Turbidity Slight Cloudy Clear 10/31 [facility] [place] (10/31/16 6:09 PM) URINE AND UA Color Yellow Yellow 10/31 [facility] [place] *NA* (10/31/16 6:09 PM) URINE AND UA Spec Grav 1.015 <=1.030 10/31 [facility] [place] CARDIAC CK MB 0.9 ng/mL 0.5 - 3.6 10/31 [facility] [place] CARDIAC Total CK 63 unit/L 12 - 191 10/31 [facility] [place] CARDIAC Troponin-I null 0.00 - 10/31 [facility] 0.40 [place] CARDIAC CK-MB INDEX 1.4 0.0 - 2.5 10/31 [facility] [place] CHEM PANEL eGFR 51 10/31 Result Comment: The eGFR is calculated using the CKD-EPI formula. In most young, healthy individuals the eGFR will be >90 mL/ min/1.73m2. The eGFR declines with age. An eGFR of 60-89 may be normal in mL/min/1.7 /2017 some populations, particularly the elderly, for whom the CKD-EPI formula has not been extensively validated. Use of the eGFR is not recommended in the following populations: [place] 3m2 Individuals with unstable creatinine concentrations, including patients [...] B/C Ratio 6 6 - 25 10/31 [place] CHEM PANEL A/G Ratio 0.9 0.7 - 1.6 10/31 [place] CHEM PANEL Globulin 3.8 g/dL 2.7 - 4.2 10/31 [place] CHEM PANEL Creatinine 1.08 mg/dL 0.50 - 10/31 MH Lvl 1.40 [place] CHEM PANEL Potassium 3.8 meq/L 3.5 - 5.1 05 MH Lvl /2016 [place] CHEM PANEL Sodium Lvl 141 meq/L 135 - 145 10/31 [place] CHEM PANEL Albumin Lvl 3.3 g/dL 3.5 - 5.0 10/31 [place] CHEM PANEL Alk Phos 98 unit/L 39 - 136 10/31 [place] CHEM PANEL Glucose Lvl 96 mg/dL 70 - 99 10/31 [place] CHEM PANEL BUN 7 mg/dL 7 - 22 05 MH [place] CHEM PANEL ASPARTATE 15 unit/L 0 - 37 10/31 MH [place] CHEM PANEL Total 7.1 g/dL 6.4 - 8.4 10/31 [place] CHEM PANEL AGAP 12.8 meq/L 10.0 - 10/31 MH 20.0 [place] CHEM PANEL Chloride Lvl 105 meq/L 95 - 109 10/31 [place] CHEM PANEL CO2 27 meq/L 24 - 32 10/31 [place] CHEM PANEL Bili Total 0.3 mg/dL 0.2 - 1.3 10/31 [place] CHEM PANEL Calcium Lvl 8.8 mg/dL 8.5 - 10.5 10/31 [place] CHEM PANEL ALANINE 23 unit/L 0 - 65 10/31 AMINOTRANS [place] RASE HEMATOLOGY WBC X 10x3 9.0 K/CMM 3.7 - 10.4 10/31 [place] HEMATOLOGY RBC X 10x6 4.95 M/CMM 4.20 - 10/31 MH 5.40 [place] HEMATOLOGY Hgb 14.3 g/dL 12.0 - 10/31 MH 16.0 [place] HEMATOLOGY Platelet 251 K/CMM 133 - 450 10/31 [place] HEMATOLOGY MCHC 33.3 g/dL 32.0 - 10/31 MH 36.0 [place] HEMATOLOGY RDW 15.2 % 11.5 - 10/31 MH 14. [place] HEMATOLOGY MCV 87.0 fL 80.0 - 10/31 MH 98.0 [place] HEMATOLOGY MPV 9.0 fL 7.4 - 10.4 10/31 [place] HEMATOLOGY MCH 29.0 pg 27.0 - 10/31 MH 31.0 [place] HEMATOLOGY Hct 43.1 % 36.0 - 10/31 MH 48.0 [place] HEMATOLOGY Eosinophils 2.8 % 0.0 - 4.0 10/31 [place] HEMATOLOGY Monocytes 9.0 % 2.0 - 12.0 10/31 [place] HEMATOLOGY Segs-Bands # 5.5 K/CMM 1.5 - 8.1 10/31 [place] HEMATOLOGY Basophils 1.1 % 0.0 - 1.0 10/31 [place] HEMATOLOGY Lymphocytes 2.4 K/CMM 1.0 - 5.5 10/31 [place] HEMATOLOGY Lymphocytes 26.6 % 20.0 - 10/31 MH 40.0 [place] HEMATOLOGY Segs 60.5 % 45.0 - 10/31 MH 75.0 [place] HEMATOLOGY Basophils # 0.1 K/CMM 0.0 - 0.2 10/31 [place] HEMATOLOGY Eosinophils 0.3 K/CMM 0.0 - 0.5 10/31 [place] HEMATOLOGY Monocytes # 0.8 K/CMM 0.0 - 0.8 10/31 [place] Brain wo Brain wo Study: Brain wo contrast CT 10/31/2016 3:17 PM CDT 10/31 [facility] contrast CT contrast CT - Jc Patient Name: SARAH ALFARO MR: [id number] Read by: Raj Reddy MD Dictated Date/time: [...] Chest pain - chest pain 10/31 - [facility] DX /2016 [facility] Comparison: None Read by: Rajat Arnold MD [...] PROCEDURE: ABDOMEN AND PELVIS CT 09/10 - [facility] vis w/wo IV is w/wo IV /2016 - [place] contrast CT contrast CT CLINICAL INDICATION: R10.84, [...] Comments Source Systolic (mm Hg) 114 09/30/2017 [facility] Diastolic (mm Hg) 75 09/30/2017 [facility] Heart Rate 96 09/30/2017 [facility] Temperature Oral (F) 97.8 F 09/30/2017 [facility] BMI Calculated 33.88 09/30/[address] [facility] Height 152.4 cm 09/30/2017 [facility] Weight 78.682 09/30/2017 [facility] Heart Rate 102 10/31/2016 [facility] Respitory Rate 24 10/31/2016 [facility] Systolic (mm Hg) 110 10/31/2016 [facility] Diastolic (mm Hg) 59 10/31/2016 [facility] Respitory Rate 16 10/31/2016 [facility] Systolic (mm Hg) 104 10/31/2016 [facility] Diastolic (mm Hg) 79 10/31/2016 [facility] Heart Rate 108 10/31/2016 [facility] Respitory Rate 28 10/31/2016 [facility] Temperature Oral (F) 98.1 F 10/31/2016 [facility] Systolic (mm Hg) 118 10/31/2016 [facility] Diastolic (mm Hg) 73 10/31/2016 [facility] Heart Rate 89 10/31/2016 [facility] Diastolic (mm Hg) 91 07/25/2013 Fabiano Mussaji Systolic (mm Hg) 160 07/25/2013 Fabiano Mussaji Temperature Oral (F) 97.3 F 07/25/2013 Fabiano Mussaji Weight 157 07/25/2013 Fabiano Boyer Height 59 07/25/2013 Fabiano Boyer Encounters Location Location Encounter Encounter Reason Attending ADM DC Status Source Details Type Number For Provider Date Date Visit Fabiano diarrhea [id number] 07/25 07/25 Fabiano Armas, [id number] /2013 Rosalind [place] [id number] Fabiano Other [id number] 07/26 07/26 Fabiano Armas, [id number] /2013 [place], [place] [id number] Fabiano Other [id number] 07/26 07/26 Fabiano Armas, [id number] /2013 Rosalind MILLER [place] [id number] Fabiano Other [id number] 07/26 07/26 Fabiano Armas, [id number] /2013 Rosalind MILLER [place] [id number] Fabiano Test [id number] 07/27 07/27 Fabiano Armas, results [id number] /2013 Rosalind DO [place] [id number] Fabiano Test [id number] 07/27 07/27 Fabiano Armas, results [id number] /2013 Ubaldoanika BARBIE MILLER [id number] Outpatient [id number] ADENRELE 05/19 Active [facility] OLAOSUN /2015 [facility] [id number] ALEXSANDER 05/29 Active [facility] LARSON /2015 [facility] [id number] ADENRELE 06/11 Active [facility] OLAOSUN /2015 [facility] [id number] CHANTAL 06/18 [facility] MUCHER [facility] Outpt Diag [id number] Niall Spence 09/10 09/11 [facility] Outpatient Services /2016 [facility] Emergency [id number] Yovany 10/31 10/31 [facility] Malya /2016 [facility] Outpatient [id number] ALVARO 09/30 [facility] /2017 [facility] Outpatient [id number] Alvaro 09/30 10/01 [facility] [place] /2017 [facility] [place] CCC Procedures Procedure Code Date Perfomer Comments Source Appendectomy [id number] Medical Group Breast cancer 1, [id number] [facility] Medical early onset gene Group mutation carrier detection test Breast [id number] Medical reconstruction Group BSO - Bilateral [id number] Medical salpingo-oophorectom Group y Cholecystectomy [id number] Medical Group Colostomy [id number] Medical Group gall bladder [id number] Medical Group H/O: hysterectomy [id number] Medical Group Hernia repair [id number] Medical Group History of hernia [id number] Medical repair Group Hysterectomy [id number] Medical Group Knee<sup>1</sup> [id number] Rt knee Medical surgery Group January 2017 Mastectomy [id number] Medical Group Appendectomy [id number] [facility] [place] Breast cancer 1, [id number] [facility] early onset gene [place] mutation carrier detection test Breast [id number] MH [facility] reconstruction [place] BSO - Bilateral [id number] MH [facility] salpingo-oophorectom [place] y Cholecystectomy [id number] MH [facility] [place] Colostomy [id number] MH [facility] [place] gall bladder [id number] [facility] [place] H/O: hysterectomy [id number] MH [facility] [place] [id number] [facility] of [facility] [id number] [facility] repair [place] Hysterectomy [id number] [facility] [place] Mastectomy [id number] [facility] [place] Appendectomy [id number] [facility] Breast cancer 1, [id number] [facility] early onset gene mutation carrier detection test Breast [id number] [facility] reconstruction BSO - Bilateral [id number] [facility] salpingo-oophorectom y Cholecystectomy [id number] [facility] Colostomy [id number] [facility] gall bladder [id number] [facility] H/O: hysterectomy [id number] [facility] Hernia repair [id number] MH [place] History of hernia [id number] MH [place] repair Hysterectomy [id number] [facility] Mastectomy [id number] [facility]
--- OUTSIDE RECORDS SUMMARY | 2018-07-27 17:15 | XMS REPORT ---
[...] Status Dosage System Date Date Chantix Starting [facility] 28279-50 0.5 MG X 11 & 1 Active as directed Month Deepak 71-02 MG X 42 [place] [address]-72 1 MG Orally Active 1 tablet 69-56 Twice a day Naftin [facility] 13572-19 2 % Externally Active 1 application 02-45 Once a day to affected area Advair Diskus [facility] 25369-49 250-50 MCG/DOSE Active 1 puff 96-00 Inhalation Twice a day Lyrica NDC 36966-91 75 MG Orally Active 1 capsule 14-41 Twice a day Chlorzoxazone NDC 75496-46 500 MG Orally Active 1 tablet 12-10 Three times a day Hydrocodone-APAP- MULTUM 11290 10-325 MG Active as directed Dietary Prod Orally Alprazolam NDC 01224-93 1 MG Orally Active 1 tablet 31-10 Twice a day Ciprofloxacin HCl NDC 38041-70 500 mg Orally Active 1 tablet 37-01 twice a day Tizanidine HCl NDC 17653-01 2 MG Orally Active 1 tablet as 34-10 every 8 hrs needed Levothyroxine NDC 78743-20 75 MCG Orally Active 1 tablet on [...]
--- OUTSIDE RECORDS SUMMARY | 2018-07-27 17:15 | XMS REPORT ---
:1945 [facility] Address [address] [place] [address] Care Team Providers Name Role Phone Unavailable Unavailable Unavailable Payers Payer Name Policy Type Policy Number Effective Date Expiration Date Problems This patient has no known problems. Allergies, Adverse Reactions, Alerts Allergy Name Allergy Status Severity Reaction(s) Onset Inactive Treating Comments Type Date Date Clinician clindamycin DA Active [place] 2017-06 00:00: 00 nitrofurantoin DA Active [place] 2017-06 00:00: 00 amitriptyline DA Active [place] 2017-06 00:00: 00 diphenhydramine DA Active [place] 2017-06 00:00: 00 minocycline DA Active [place] 2017-06 00:00: 00 levofloxacin DA Active [place] 2017-06 00:00: 00 pregabalin DA Active [place] 2017-06 00:00: 00 amitriptyline DA Active SV HCl 02-27 00:00: 00 soap DA Active U 02-27 00:00: 00 Penicillins DA Active U 02-27 00:00: 00 Sulfa DA Active U (Sulfonamide 02-27 Antibiotics) 00:00: 00 nicotine DA Active U 02-27 00:00: 00 povidone-iodine DA Active U 2014-0 9-16 00:00: 00 adhesive DA Active U 2013-0 02-27 00:00: 00 Medications This patient has no known medications.
[2018-07-27 18:10] LABS: Absolute Lymphocytes (CBC) 1.7 K/uL (0.7-4.9); Absolute Neutrophil 7.3 K/uL (1.8-8.0); Basophils % 1.3 % (0-1.3); Eosinophils % 1.3 % (0-4.4); Lymphocytes % 16.9 % (15.3-44.8); MPV 9.8 fL (7.6-11.3); Monocytes % 9.5 % (3.3-12.3); RBC Red Blood Cell Count 4.83 M/uL (3.86-4.86)
[2018-07-27] MEDS ORDERED: METHYLPREDNISOLONE 125 MG INJ ONE (18:14)
[2018-07-27] MEDS ORDERED: NA CHLORIDE 0.9% 1,000 ML ONE (18:15)
[2018-07-27] MEDS ORDERED: LEVALBUTEROL 1.25 MG/3 ML NEB ONE (18:15)
[2018-07-27 18:27] LABS: BUN Blood Urea Nitrogen 12 mg/dL (7-18); Bicarbonate 30 mmol/L (21-32); Glucose Level 196 mg/dL (74-106); NT PRO-BNP 278 pg/mL (<450); Potassium 3.6 mmol/L (3.5-5.1); Sodium Level 144 mmol/L (136-145); Troponin (Emerg Dept Use Only) < 0.02 ng/mL (0.0-0.045)
--- NOTE | 2018-07-27 18:51 | EDPHYS ---
Physician Documentation [facility] Name: Gabriella Rao Age: 73 yrs Sex: Female : 1945 Arrival Date: 07/27/2018 Time: 17:15 Bed 28 Private MD: ED Physician Manav Patel HPI: 07/27 18:23 This 73 yrs old Female presents to ER via Ambulatory with complaints of rn Cough, Shortness Of Breath. 18:23 The patient or guardian reports cough, flu symptoms. Onset: The symptoms/episode rn began/occurred 2 day(s) ago. Severity of symptoms: At their worst the symptoms were moderate, in the emergency department the symptoms are unchanged. Modifying factors: The symptoms are alleviated by nothing, the symptoms are aggravated by nothing. The patient has experienced similar episodes in the past. Reports fever/chills/cough/sob for 2 days, muscle aches and fatigue, nebulizers and inhaled steroids not helping. Reports admitted for pneumonia 1 month ago, doesn't feel like pneumonia to her. . Historical: - Allergies: 17:38 BACITRACIN; hb 17:38 Benadryl; hb 17:38 Clindamycin; hb 17:38 Elivil; hb 17:38 Levofloxacin; hb 17:38 Minocycline; hb 17:38 Nitrofurantoin Macrocrystal; hb 17:38 PENICILLINS; hb 17:38 Povidone-Iodine; hb 17:38 soap; hb 17:38 Sulfa (Sulfonamide Antibiotics); hb - Home Meds: 17:38 ProAir HFA 90 mcg/actuation inhalation HFAA 1 puff every 4 hours [Active]; alprazolam 1 hb mg Oral TbDL 1 tab 3 times per day [Active]; furosemide 20 mg Oral tab 1 tab once daily [Active]; gabapentin 400 mg Oral cap 1 cap 3 times per day [Active]; hydrocodone-acetaminophen 10-325 mg Oral tab 1 tab every 6 hours [Active]; levothyroxine 88 mcg tab 1 tab once daily [Active]; montelukast 10 mg Oral tab 1 tab once daily [Active]; ropinirole 2 mg Oral Tb24 2 tabs once daily [Active]; - PMHx: 17:38 COPD; Chronic pain; Hyperlipidemia; Hypertension; hb - PSHx: 17:38 colon resection; massiel lumpectomy; Appendectomy; Cholecystectomy; spleenectomy; hb Hysterectomy; - Immunization history:: Adult Immunizations up to date. - Social history:: Smoking status: Patient/guardian denies using tobacco. - Ebola Screening: : No symptoms or risks identified at this time. - Family history:: not pertinent. - Hospitalizations: : No recent hospitalization is reported. 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 Eyes: Pupils equal round and reactive to light, extra-ocular motions intact. Lids and lashes normal. Conjunctiva and sclera are non-icteric and not injected. Cornea within normal limits. Periorbital areas with no swelling, redness, or edema. ENT: dry MM, no stridor Cardiovascular: tachycardic, regular, no murmur Respiratory: + moderate tachypnea with diminished bilateral breath sounds, + faint wheezing bilaterally Abdomen/GI: soft, mild LUQ tenderness, no rebound Skin: Warm, dry with normal turgor. Normal color with no rashes, no lesions, and no evidence of cellulitis. MS/ Extremity: Pulses equal, no cyanosis. Neurovascular intact. Full, normal range of motion. Equal circumference. Neuro: Awake and alert, GCS 15, oriented to person, place, time, and situation. Cranial nerves II-XII grossly intact. Motor strength 5/5 in all extremities. Sensory grossly intact. Cerebellar exam normal. Vital Signs: 17:37 BP 127 / 78; Pulse 119; Resp 24; Temp 100(TE); Pulse Ox 98% on R/A; Pain 10/10; hb 18:15 BP 139 / 87; Pulse 110; Resp 35 S; Pulse Ox 98% on Nebulizer Mask; rv 18:30 BP 142 / 101; Pulse 112; Resp 27; Pulse Ox 100% on Nebulizer Mask; rv 19:00 BP 148 / 104; Pulse 116; Resp 33; Pulse Ox 99% on 2 lpm NC; rv 19:30 BP 124 / 98; Pulse 123; Resp 24; Pulse Ox 100% on BiPAP; rv 20:00 BP 144 / 100; Pulse 124; Resp 22; Pulse Ox 100% on BiPAP; rv 20:30 BP 138 / 96; Pulse 120; Resp 22; Pulse Ox 100% on BiPAP; rv 22:30 BP 148 / 104; Pulse 116; Resp 25; Pulse Ox 100% on BiPAP; rv MDM: 17:44 Patient medically screened. rn 18:44 Differential Diagnosis: Bronchitis Influenza Upper Respiratory Infection Viral Syndrome rn Pneumonia. Data reviewed: vital signs, nurses notes, lab test result(s), EKG, radiologic studies, plain films, and as a result, I will admit patient. Counseling: I had a detailed discussion with the patient and/or guardian regarding: the historical points, exam findings, and any diagnostic results supporting the discharge/admit diagnosis, lab results, radiology results, the need for further work-up and treatment in the hospital. Admission orders: after a detailed discussion of the patient's condition and case, the admit orders are written by me. ED course: Admitted to Dr. Mckeon for COPD exacerbation. On NC, still increased work of breathing. Neg flu, no obvious pneumonia on CXR. . 07/27 17:44 Order name: Flu; Complete Time: 18:41 rn 07/27 17:50 Order name: CBC with Diff; Complete Time: 18:23 rn 07/27 17:50 Order name: Basic Metabolic Panel; Complete Time: 18:41 rn 07/27 17:50 Order name: Procalcitonin rn 07/27 17:50 Order name: Troponin (emerg Dept Use Only); Complete Time: 18:41 rn 07/27 17:50 Order name: PROBNP; Complete Time: 18:41 rn 07/27 17:44 Order name: XRAY Chest (1 view) rn 07/27 17:58 Order name: Blood Culture Adult (2) ss 07/27 18:49 Order name: BIPAP rn 07/27 21:32 Order name: CBC with Automated Diff EDMS 07/27 21:32 Order name: CBC with Automated Diff EDMS 07/27 21:32 Order name: Comprehensive Metabolic Panel [facility] 07/27 21:32 Order name: Comprehensive Metabolic Panel [facility] 07/27 17:50 Order name: IV Start; Complete Time: 18:11 rn 07/27 17:50 Order name: EKG; Complete Time: 17:51 rn 07/27 17:50 Order name: EKG - Nurse/Tech; Complete Time: 18:25 rn 07/27 21:32 Order name: CONS Pharmacy Consult [facility] 07/27 21:32 Order name: Heart Healthy [facility] Administered Medications: 18:10 Drug: SOLU-Medrol 125 mg Route: IVP; Site: left antecubital; rv 18:10 Drug: NS 0.9% 500 ml Route: IV; Rate: bolus; Site: left antecubital; rv 18:10 Drug: Xopenex (3) 1.25 mg Route: Inhalation; rv Disposition: 07/27/18 18:50 Hospitalization ordered by Danette Mckeon for Inpatient Admission. Preliminary diagnosis are Chronic obstructive pulmonary disease with (acute) exacerbation, Tachypnea, not elsewhere classified. - Bed requested for Telemetry/MedSurg (Inpatient). - Status is Inpatient Admission. rv - Condition is Stable. - Problem is new. - Symptoms have improved. UTI on Admission? No Signatures: Dispatcher [employer] [facility] Manav Patel MD MD rn Garcia, Cindy, RN RN Adeline Shepherd, VERA GAMEZ Patric Valentin RN RN rv Corrections: (The following items were deleted from the chart) 21:39 18:50 Hospitalization Ordered by Danette Mckeon MD for Inpatient Admission. Preliminary cg diagnosis is Chronic obstructive pulmonary disease with (acute) exacerbation; Tachypnea, not elsewhere classified. Bed requested for Telemetry/MedSurg (Inpatient). Status is Inpatient Admission. Condition is Stable. Problem is new. Symptoms have improved. UTI on Admission? No. rn 22:30 21:39 07/27/2018 18:50 Hospitalization Ordered by Danette Mckeon MD for Inpatient rv Admission. Preliminary diagnosis is Chronic obstructive pulmonary disease with (acute) exacerbation; Tachypnea, not elsewhere classified. Bed requested for Telemetry/MedSurg (Inpatient). Status is Inpatient Admission. Condition is Stable. Problem is new. Symptoms have improved. UTI on Admission? No. cg
--- NOTE | 2018-07-27 18:51 | ER ---
Nurse's Notes [facility] Name: Gabriella Rao Age: 73 yrs Sex: Female : 1945 Arrival Date: 07/27/2018 Time: 17:15 Bed 28 Private MD: Diagnosis: Chronic obstructive pulmonary disease with (acute) exacerbation;Tachypnea, not elsewhere classified Presentation: 07/27 17:36 Presenting complaint: Productive cough with white sputum, SOB, body aches, and N/V x 2 hb days. Transition of care: patient was not received from another setting of care. Onset of symptoms was July 26, 2018. Risk Assessment: Do you want to hurt yourself or someone else? Patient reports no desire to harm self or others. Care prior to arrival: None. 17:36 Method Of Arrival: Ambulatory hb 17:36 Acuity: DAVID 2 hb 18:24 Initial Sepsis Screen: Does the patient meet any 2 criteria? No. Patient's initial rv sepsis screen is negative. Does the patient have a suspected source of infection? No. Patient's initial sepsis screen is negative. Triage Assessment: 18:24 General: Appears in no apparent distress. uncomfortable. Respiratory: Reports shortness rv of breath at rest cough that is Onset: The symptoms/episode began/occurred gradually, the patient has mild shortness of breath. Historical: - Allergies: 17:38 BACITRACIN; hb 17:38 Benadryl; hb 17:38 Clindamycin; hb 17:38 Elivil; hb 17:38 Levofloxacin; hb 17:38 Minocycline; hb 17:38 Nitrofurantoin Macrocrystal; hb 17:38 PENICILLINS; hb 17:38 Povidone-Iodine; hb 17:38 soap; hb 17:38 Sulfa (Sulfonamide Antibiotics); hb - Home Meds: 17:38 ProAir HFA 90 mcg/actuation inhalation HFAA 1 puff every 4 hours [Active]; alprazolam 1 hb mg Oral TbDL 1 tab 3 times per day [Active]; furosemide 20 mg Oral tab 1 tab once daily [Active]; gabapentin 400 mg Oral cap 1 cap 3 times per day [Active]; hydrocodone-acetaminophen 10-325 mg Oral tab 1 tab every 6 hours [Active]; levothyroxine 88 mcg tab 1 tab once daily [Active]; montelukast 10 mg Oral tab 1 tab once daily [Active]; ropinirole 2 mg Oral Tb24 2 tabs once daily [Active]; - PMHx: 17:38 COPD; Chronic pain; Hyperlipidemia; Hypertension; hb - PSHx: 17:38 colon resection; massiel lumpectomy; Appendectomy; Cholecystectomy; spleenectomy; hb Hysterectomy; - Immunization history:: Adult Immunizations up to date. - Social history:: Smoking status: Patient/guardian denies using tobacco. - Ebola Screening: : No symptoms or risks identified at this time. - Family history:: not pertinent. - Hospitalizations: : No recent hospitalization is reported. Screenin:24 Abuse screen: Denies threats or abuse. Denies injuries from another. Nutritional rv screening: No deficits noted. Tuberculosis screening: No symptoms or risk factors identified. Fall Risk None identified. Assessment: 18:21 General: Appears in no apparent distress. uncomfortable, Behavior is calm, cooperative. rv Pain: Denies pain. Neuro: Level of Consciousness is awake, alert, obeys commands, Oriented to person, place, time, situation. Cardiovascular: Capillary refill < 3 seconds Rhythm is sinus tachycardia. Respiratory: Airway is patent Respiratory effort is labored, Breath sounds with wheezes bilaterally. GI: No signs and/or symptoms were reported involving the gastrointestinal system. : No signs and/or symptoms were reported regarding the genitourinary system. EENT: No signs and/or symptoms were reported regarding the EENT system. Derm: Skin is intact. Musculoskeletal: No signs and/or symptoms reported regarding the musculoskeletal system. Vital Signs: 17:37 BP 127 / 78; Pulse 119; Resp 24; Temp 100(TE); Pulse Ox 98% on R/A; Pain 10/10; hb 18:15 BP 139 / 87; Pulse 110; Resp 35 S; Pulse Ox 98% on Nebulizer Mask; rv 18:30 BP 142 / 101; Pulse 112; Resp 27; Pulse Ox 100% on Nebulizer Mask; rv 19:00 BP 148 / 104; Pulse 116; Resp 33; Pulse Ox 99% on 2 lpm NC; rv 19:30 BP 124 / 98; Pulse 123; Resp 24; Pulse Ox 100% on BiPAP; rv 20:00 BP 144 / 100; Pulse 124; Resp 22; Pulse Ox 100% on BiPAP; rv 20:30 BP 138 / 96; Pulse 120; Resp 22; Pulse Ox 100% on BiPAP; rv 22:30 BP 148 / 104; Pulse 116; Resp 25; Pulse Ox 100% on BiPAP; rv ED Course: 17:15 Patient arrived in ED. sb2 17:37 Triage completed. hb 17:39 Arm band placed on. hb 17:40 Inserted saline lock: 20 gauge in left antecubital area, using aseptic technique. Blood rv collected. 17:44 Manav Patel MD is Attending Physician. rn 18:11 Flu Sent. rv 18:11 XRAY Chest (1 view) Sent. rv 18:24 Patient has correct armband on for positive identification. Bed in low position. Call rv light in reach. Side rails up X 1. Adult w/ patient. talent manager on. Pulse ox on. NIBP on. 18:28 XRAY Chest (1 view) In Process Unspecified. EDMS 18:50 Danette Mckeon MD is Hospitalizing Provider. rn 22:30 No provider procedures requiring assistance completed. Patient admitted, IV remains in rv place. Administered Medications: 18:10 Drug: SOLU-Medrol 125 mg Route: IVP; Site: left antecubital; rv 18:10 Drug: NS 0.9% 500 ml Route: IV; Rate: bolus; Site: left antecubital; rv 18:10 Drug: Xopenex (3) 1.25 mg Route: Inhalation; rv Outcome: 18:50 Decision to Hospitalize by Provider. rn 22:30 Admitted to Med/surg accompanied by tech, via stretcher, room 215, with chart, Report rv called to [facility] 22:30 Condition: stable 22:30 Instructed on the need for admit. 22:30 Patient left the ED. rv Signatures: Dispatcher [employer] EDMT Manav Patel MD MD rn Baxter, Heather, RN RN Zenobia Muro sb2 Patric Vaelntin RN RN rv
--- NOTE | 2018-07-27 18:56 | RAD REPORT ---
EXAM DESCRIPTION: RAD - Chest Single View - 07/27/2018 6:24 pm CLINICAL HISTORY: COUGH Chest pain. COMPARISON: Chest Pa And Lat (2 Views) dated 04/27/2018; CHEST SINGLE VIEW dated 12/27/2009; CHEST SI NGLE VIEW dated 09/29/2009; CHEST PA AND LAT 2 VIEW dated 04/03/2009 FINDINGS: Portable technique limits examination quality. The lungs are grossly clear. The heart is normal in size. No displaced fractures. IMPRESSION: No acute intrathoracic process suspected.
[2018-07-27] MEDS ORDERED: ACETAMINOPHEN 500 MG TAB PO PRN (21:29)
[2018-07-27] MEDS ORDERED: MORPHINE 2 MG/ML SYR IV PRN (21:29)
[2018-07-27] MEDS ORDERED: ONDANSETRON 4 MG/2 ML VIAL IV PRN (21:29)
[2018-07-27] MEDS ORDERED: NA CHLORIDE 0.9% 1,000 ML IV SCH (22:00)
[2018-07-27] MEDS ORDERED: ALBUTEROL INHALER 60 PUFF/8 GM IH PRN (23:26)
[2018-07-27] MEDS ORDERED: CARISOPRODOL 350 MG TAB PO PRN (23:26)
[2018-07-28] MEDS: HYDROCODONE/APAP 10/325 TAB PO PRN ×2 (00:21→20:10)
[2018-07-28] MEDS: ROPINIROLE HCL 1 MG TAB PO SCH ×3 (01:29→20:03)
[2018-07-28] MEDS: PANTOPRAZOLE 40MG TABLET PO SCH (05:26)
[2018-07-28 06:37] LABS: Albumin 3.3 g/dL (3.4-5.0); Bilirubin Total 0.2 mg/dL (0.2-1.0); Potassium 4.4 mmol/L (3.5-5.1); Protein, Total 6.9 g/dL (6.4-8.2)
[2018-07-28 06:39] LABS: Absolute Lymphocytes (CBC) 0.7 K/uL (0.7-4.9); Absolute Monocytes 0.1 K/uL (0.1-1.3); Absolute Neutrophil 8.5 K/uL (1.8-8.0); Basophils % 0.2 % (0-1.3); Hematocrit 37.4 % (36.0-45.0); Lymphocytes % 7.7 % (15.3-44.8); MPV 10.5 fL (7.6-11.3); Monocytes % 1.4 % (3.3-12.3); RBC Red Blood Cell Count 4.33 M/uL (3.86-4.86)
[2018-07-28] MEDS ORDERED: D50W 25 GM/50 ML SYRINGE IV PRN ×2 (06:43→12:21)
[2018-07-28] MEDS ORDERED: GLUCAGON 1 MG/VIAL IM PRN ×2 (06:43→12:21)
[2018-07-28] MEDS: INSULIN 70/30 100 UNITS/ML SQ SCH (08:53)
[2018-07-28] MEDS: GABAPENTIN 100 MG CAP PO SCH ×3 (08:54→20:03)
[2018-07-28] MEDS: LEVOTHYROXINE SOD 0.088 MG TAB PO SCH (08:55)
[2018-07-28] MEDS: FUROSEMIDE 20 MG TABLET PO SCH (08:55)
[2018-07-28] MEDS: GUAIFENESIN/CODEINE 5ML UCUP PO PRN ×2 (08:56→18:04)
[2018-07-28] MEDS: MONTELUKAST 10 MG TAB PO SCH (08:56)
[2018-07-28] MEDS ORDERED: HOME MED 1 EA UNK (Omeprazole [Prilosec] 1 TAB) PO SCH (09:00)
[2018-07-28] MEDS ORDERED: RIVAROXABAN 10 MG TABLET PO SCH ×3 (09:00→21:00)
[2018-07-28] MEDS ORDERED: ROPINIROLE HCL PO SCH (09:00)
[2018-07-28] MEDS ORDERED: RIVAROXABAN 20 MG TABLET PO SCH (09:00)
--- NOTE | 2018-07-28 09:50 | EKG ---
Test Date: 2018-07-27 Test Time: 18:15:36 Stained Glass Installer: SABRINAT MEASUREMENT RESULTS: Intervals: Rate: 108 ID: [id number] QRSD: 74 QT: 358 QTc: 479 Bath: P: 73 ID: [id number] QRS: -6 T: 51 INTERPRETIVE STATEMENTS: Sinus tachycardia with premature atrial complexes Otherwise normal ECG Compared to ECG 12/27/2009 19:17:46 Atrial premature complex(es) now present Sinus rhythm no longer present Electronically Signed On 07-28-18 08:34:50 ADMINISTRATIVE OFFICE ASSISTANT by Ashok Garcia
[2018-07-28 10:50] LABS: Blood Morphology Comment NOT SEEN (NOT SEEN); Platelet Estimate ADEQ; Platelets, Giant RARE; Urine White Blood Cell Casts OK
[2018-07-28] MEDS: INSULIN -REGULAR HUMAN 50 UNIT/0.5 ML ML SQ SCH ×3 (12:35→21:00)
--- NOTE | 2018-07-28 17:51 | P.PN ---
Subjective Date of Service: 07/28/18 Patient seen and examined at bedside. No family at bedside. Chart reviewed and case discussed with nursing staff. Review of Systems 10-point ROS is otherwise unremarkable Physical Examination - Vital Signs Temperature: 97.8 F Blood Pressure: 125/60 Pulse: 86 Respirations: 22 Pulse Ox (%): 96 - Physical Exam General: Alert, In no apparent distress HEENT: Atraumatic, PERRLA, EOMI Neck: Supple, JVD not distended Respiratory: Clear to auscultation bilaterally, Normal air movement Cardiovascular: Regular rate/rhythm, Normal S1 S2 Gastrointestinal: Normal bowel sounds, No tenderness Musculoskeletal: No tenderness Integumentary: No rashes Neurological: Normal speech, Normal tone, Normal affect Lymphatics: No axilla or inguinal lymphadenopathy - Studies Laboratory Data (last 24 hrs) 07/27/18 17:40: Sodium 144, Potassium 3.6, BUN 12, Creatinine 1.18, Glucose 196 H 07/27/18 17:40: WBC 10.3, Hgb 13.2, Hct 41.0, Plt Count 290 Microbiology Data (last 24 hrs): 07/27/18 17:40 Nasopharnyx Influenza Type A Antigen Screen - Final 07/27/18 17:40 Nasopharnyx Influenza Type B Antigen Screen - Final Assessment And Plan - Current Problems (Diagnosis) (1) Acute respiratory failure Onset Date: 04/28/18 Current Visit: No Status: Acute Qualifiers: Respiratory failure complication: hypoxia Qualified Code(s): J96.01 - Acute respiratory failure with hypoxia (2) COPD exacerbation Onset Date: 04/28/18 Current Visit: No Status: Acute (3) Hypertension Onset Date: 04/28/18 Current Visit: No Status: Chronic Qualifiers: Hypertension type: essential hypertension Qualified Code(s): I10 - Essential (primary) hypertension - Plan Acute respiratory failure COPD exacerbation Hypertension Continue breathing treatments, oxygen per protocol. IV steroids Restart home medications. DVT prophylaxis: Lovenox GI prophylaxis: None Diet: Heart healthy Disposition: Pending symptomatic improved
[2018-07-28] MEDS: ALPRAZOLAM 1 MG TABLET PO PRN (21:31)
--- NOTE | 2018-07-28 22:25 | P.HP ---
Patient History Allergies amitriptyline [From Elavil] Allergy (Verified 07/27/18 22:45) Shortness of breath bacitracin Allergy (Verified 07/27/18 22:45) Hives clindamycin Allergy (Verified 07/27/18 22:45) Hives/Rash diphenhydramine [From Benadryl] Allergy (Verified 07/27/18 22:45) Rash levofloxacin Allergy (Verified 07/27/18 22:45) Hives minocycline Allergy (Verified 07/27/18 22:45) Hives/Rash nitrofurantoin Allergy (Verified 07/27/18 22:45) Shortness of breath Penicillins Allergy (Verified 04/28/18 10:03) Unknown povidone-iodine [From Betadine] Allergy (Verified 04/28/18 10:03) Unknown soap [From Betadine] Allergy (Verified 04/28/18 10:03) Unknown Adhesives Allergy (Uncoded 04/28/18 10:03) Unknown sulfur Allergy (Uncoded 04/28/18 10:03) Unknown Home Medications: ALPRAZolam [Alprazolam] 1 tab PO DAILY PRN 07/27/18 Albuterol Sulfate [Proair Hfa] 90 mcg IN Q4HP PRN 07/27/18 Carisoprodol 1 tab PO DAILY 07/27/18 Furosemide 40 mg PO DAILY 07/27/18 Gabapentin 1 tab PO TID 07/27/18 Hydrocodone Bit/Acetaminophen [Hydrocodon-Acetaminophn 10-325] 1 tab PO QID Levothyroxine Sodium 1 tab PO DAILY 07/27/18 Montelukast [Singulair*] 1 tab PO DAILY 07/27/18 Omeprazole [Prilosec] 1 tab PO DAILY 07/27/18 Ropinirole HCl 1 tab PO BID 07/27/18 Rivaroxaban [Xarelto] 10 mg PO BEDTIME 07/28/18 Rivaroxaban [Xarelto] 20 mg PO DAILY 07/28/18 - Past Medical/Surgical History Has patient received pneumonia vaccine in the past: Yes Diabetic: No -: COPD -: Migraine -: Osteoarthritsi -: Fibromyalgia -: Osteoporosis -: Irritable Bowel Syndrome -: Restless Leg -: Stomach Ulcer -: 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 -: colitis -: Rectocele/cystocele -: Appendectomy -: Hysterectomy -: Right Breast Malignant, Left breast benign -: Double Hernia repair -: Mesh Implant -: Restruction of Right Breast -: Total knee replacement -: Right Knee Implant - Family History Father Medical History: Cancer Mother Medical History: Heart disease - Social History Smoking Status: Former smoker Alcohol use: Yes CD- Drugs: No Caffeine use: Yes Place of Residence: Home Physical Examination - Vital Signs Temperature: 97.3 F Blood Pressure: 111/54 Pulse: 97 Respirations: 20 Pulse Ox (%): 94 - Studies Microbiology Data (last 24 hrs): 07/27/18 17:40 Nasopharnyx Influenza Type A Antigen Screen - Final 07/27/18 17:40 Nasopharnyx Influenza Type B Antigen Screen - Final Assessment & Plan - Advance Directives Does patient have a Living Will: Yes Does patient have a Durable POA for Healthcare: Yes
[2018-07-29] MEDS: HYDROCODONE/APAP 10/325 TAB PO PRN ×2 (01:05→09:25)
[2018-07-29] MEDS: GUAIFENESIN/CODEINE 5ML UCUP PO PRN ×2 (02:22→09:23)
[2018-07-29] MEDS: PANTOPRAZOLE 40MG TABLET PO SCH (05:58)
[2018-07-29] MEDS: INSULIN -REGULAR HUMAN 50 UNIT/0.5 ML ML SQ SCH ×4 (07:30→20:47)
[2018-07-29 09:02] LABS: Potassium 3.8 mmol/L (3.5-5.1)
[2018-07-29] MEDS: INSULIN 70/30 100 UNITS/ML SQ SCH (09:23)
[2018-07-29] MEDS: FUROSEMIDE 20 MG TABLET PO SCH (09:24)
[2018-07-29] MEDS: GABAPENTIN 100 MG CAP PO SCH ×3 (09:24→20:46)
[2018-07-29] MEDS: LEVOTHYROXINE SOD 0.088 MG TAB PO SCH (09:24)
[2018-07-29] MEDS: RIVAROXABAN 20 MG TABLET PO SCH (09:25)
[2018-07-29] MEDS: ROPINIROLE HCL 1 MG TAB PO SCH ×2 (09:25→20:46)
[2018-07-29] MEDS: MONTELUKAST 10 MG TAB PO SCH (09:25)
[2018-07-29] MEDS: PHENOL 1.4% ORAL SPRAY 180ML MM PRN (18:45)
[2018-07-29] MEDS: ALPRAZOLAM 1 MG TABLET PO PRN (21:40)
[2018-07-30] MEDS: PANTOPRAZOLE 40MG TABLET PO SCH (05:32)
[2018-07-30] MEDS: PHENOL 1.4% ORAL SPRAY 180ML MM PRN ×3 (05:43→17:47)
[2018-07-30] MEDS: INSULIN -REGULAR HUMAN 50 UNIT/0.5 ML ML SQ SCH ×4 (07:30→21:00)
[2018-07-30] MEDS: INSULIN 70/30 100 UNITS/ML SQ SCH (08:53)
[2018-07-30] MEDS: MONTELUKAST 10 MG TAB PO SCH (08:55)
[2018-07-30] MEDS: GABAPENTIN 100 MG CAP PO SCH ×3 (08:55→21:31)
[2018-07-30] MEDS: RIVAROXABAN 20 MG TABLET PO SCH (08:55)
[2018-07-30] MEDS: LEVOTHYROXINE SOD 0.088 MG TAB PO SCH (08:56)
[2018-07-30] MEDS: FUROSEMIDE 20 MG TABLET PO SCH (08:57)
[2018-07-30] MEDS: ROPINIROLE HCL 1 MG TAB PO SCH ×2 (08:58→21:31)
[2018-07-30] MEDS: GUAIFENESIN/CODEINE 5ML UCUP PO PRN (08:59)
[2018-07-30] MEDS: FENTANYL 50 MCG/PATCH TD SCH (13:06)
--- NOTE | 2018-07-30 14:30 | RAD REPORT ---
EXAM DESCRIPTION: RAD - Shoulder Left 2 View - 07/30/2018 2:16 pm CLINICAL HISTORY: shoulder pain COMPARISON: No comparisons FINDINGS: Moderate AC and glenohumeral joint arthritic changes are present. No acute fracture or dis location. No AVN pattern.
--- NOTE | 2018-07-30 14:30 | RAD REPORT ---
EXAM DESCRIPTION: RAD - Lumbar Spine 3 Views - 07/30/2018 2:16 pm CLINICAL HISTORY: lowback pain Radiculopathy COMPARISON: LUMBAR SPINE 3 VIEWS dated 12/25/2008 FINDINGS: Vertebral body heights appear maintained. No compression fracture noted. Disc thinning is present with small endplate osteophytes at L4-5 and L5-S1. No spondylolysis or spondylolisthesis. Aortic atherosclerosis. Small stone is present inferior left kidney. Cholecystectomy clips are presen t. IMPRESSION: Osteopenia with mild lower lumbar degenerative changes. Small stone is present inferior left kidney.
--- NOTE | 2018-07-30 15:36 | P.PN ---
Subjective Date of Service: 07/29/18 Patient seen and examined at bedside. No family at bedside. Chart reviewed and case discussed with nursing staff. Review of Systems 10-point ROS is otherwise unremarkable Physical Examination - Vital Signs Temperature: 97.8 F Blood Pressure: 125/60 Pulse: 86 Respirations: 22 Pulse Ox (%): 96 - Physical Exam General: Alert, In no apparent distress HEENT: Atraumatic, PERRLA, EOMI Neck: Supple, JVD not distended Respiratory: Clear to auscultation bilaterally, Normal air movement Cardiovascular: Regular rate/rhythm, Normal S1 S2 Gastrointestinal: Normal bowel sounds, No tenderness Musculoskeletal: No tenderness Integumentary: No rashes Neurological: Normal speech, Normal tone, Normal affect Lymphatics: No axilla or inguinal lymphadenopathy Assessment And Plan - Current Problems (Diagnosis) (1) Acute respiratory failure Onset Date: 04/28/18 Current Visit: No Status: Acute Qualifiers: Respiratory failure complication: hypoxia Qualified Code(s): J96.01 - Acute respiratory failure with hypoxia (2) COPD exacerbation Onset Date: 04/28/18 Current Visit: No Status: Acute (3) Hypertension Onset Date: 04/28/18 Current Visit: No Status: Chronic Qualifiers: Hypertension type: essential hypertension Qualified Code(s): I10 - Essential (primary) hypertension - Plan Acute respiratory failure COPD exacerbation Hypertension Continue breathing treatments, oxygen per protocol. IV steroids Restart home medications. DVT prophylaxis: Lovenox GI prophylaxis: None Diet: Heart healthy Disposition: Pending symptomatic improved
--- NOTE | 2018-07-30 15:43 | P.PN ---
Subjective Date of Service: 07/30/18 Chief Complaint: Shortness of breath Patient seen and examined at bedside. Son at bedside. Chart reviewed and case discussed with nursing staff. Patient reports breathing improved. She is concerned about her blood sugars. States that she had a recent fall back in April if where she broke her shoulder and her back pain worsened. She is also endorsing shoulder pain. She has a history of chronic back pain that she takes multiple pain medications at home for. Review of Systems 10-point ROS is otherwise unremarkable Physical Examination - Vital Signs Temperature: 97.8 F Blood Pressure: 125/60 Pulse: 86 Respirations: 22 Pulse Ox (%): 96 - Physical Exam General: Alert, Oriented x3, Mild distress, Obese HEENT: Atraumatic, PERRLA, EOMI Neck: Supple, JVD not distended Respiratory: Dull, Crackles/rales Cardiovascular: Regular rate/rhythm, Normal S1 S2 Gastrointestinal: Normal bowel sounds, No tenderness Musculoskeletal: No clubbing, No swelling, No erythema, No tenderness, No warmth Integumentary: No rashes Neurological: Normal speech, Normal tone, Normal affect Lymphatics: No axilla or inguinal lymphadenopathy Assessment And Plan - Current Problems (Diagnosis) (1) Acute respiratory failure Onset Date: 04/28/18 Current Visit: No Status: Acute Qualifiers: Respiratory failure complication: hypoxia Qualified Code(s): J96.01 - Acute respiratory failure with hypoxia (2) COPD exacerbation Onset Date: 04/28/18 Current Visit: No Status: Acute (3) Hypertension Onset Date: 04/28/18 Current Visit: No Status: Chronic Qualifiers: Hypertension type: essential hypertension Qualified Code(s): I10 - Essential (primary) hypertension (4) Hyperglycemia Current Visit: Yes Status: Acute (5) Shoulder pain Current Visit: Yes Status: Acute Qualifiers: Chronicity: acute Laterality: left Qualified Code(s): M25.512 - Pain in left shoulder (6) Back pain Current Visit: Yes Status: Chronic Qualifiers: Back pain location: low back pain Chronicity: chronic Back pain laterality: bilateral Sciatica presence: without sciatica Qualified Code(s) : M54.5 - Low back pain; G89.29 - Other chronic pain - Plan This is a 73-year-old female with: Acute respiratory failure COPD exacerbation Continue breathing treatments, oxygen per protocol. IV steroids due to hypoglycemic. Patient refuses steroids. Okay to hold as patient's breathing has improved Hypertension Stable. Restart home medications. Hyperglycemia Initially it was thought that steroids were causing the hypoglycemia. The patient with a blood sugar 400+ on admission when she was not receiving steroids. Patient states she does not have a history of diabetes. Will go ahead and check an A1c, nutrition consult, 1800 diabetic diet. We will go ahead and continue Accu-Cheks and insulin at this time. If A1c elevated, may need oral diabetes medications on discharge along with diabetes resources. 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 She was seen at [facility] after the fall. Imaging was done, was told that she may have a fracture in the left shoulder. States that her pain has been worsening and she has not seen any orthopedic/bone doctor at this time Shoulder x-ray ordered, pending once resulted, will get physical therapy to evaluate Back pain, chronic Patient on multiple medications for pain at home. Will go ahead and try a fentanyl patch to the back to see if this will help her chronic back pain. At discharge, she may need follow up with pain management physician. DVT prophylaxis: Lovenox GI prophylaxis: None Diet: 1800 diabetic diet Disposition: Pending symptomatic improvement
[2018-07-31] MEDS: PHENOL 1.4% ORAL SPRAY 180ML MM PRN ×3 (00:22→21:18)
[2018-07-31] MEDS: GUAIFENESIN/CODEINE 5ML UCUP PO PRN ×2 (00:22→09:47)
[2018-07-31] MEDS: PANTOPRAZOLE 40MG TABLET PO SCH (05:36)
[2018-07-31] MEDS: INSULIN -REGULAR HUMAN 50 UNIT/0.5 ML ML SQ SCH ×4 (07:30→21:00)
[2018-07-31] MEDS: INSULIN 70/30 100 UNITS/ML SQ SCH (09:00)
[2018-07-31] MEDS: GABAPENTIN 100 MG CAP PO SCH ×3 (09:02→21:14)
[2018-07-31] MEDS: ROPINIROLE HCL 1 MG TAB PO SCH ×2 (09:02→21:14)
[2018-07-31] MEDS: FUROSEMIDE 20 MG TABLET PO SCH (09:02)
[2018-07-31] MEDS: MONTELUKAST 10 MG TAB PO SCH (09:03)
[2018-07-31] MEDS: LEVOTHYROXINE SOD 0.088 MG TAB PO SCH (09:03)
[2018-07-31] MEDS: RIVAROXABAN 20 MG TABLET PO SCH (09:03)
--- NOTE | 2018-07-31 18:43 | P.PN ---
Subjective Date of Service: 07/31/18 Chief Complaint: Shortness of breath Subjective: Improving Patient seen and examined at bedside. Son at bedside. Chart reviewed and case discussed with nursing staff. Patient reports breathing improved. Review of Systems 10-point ROS is otherwise unremarkable Physical Examination - Vital Signs Temperature: 97.4 F Blood Pressure: 106/59 Pulse: 102 Respirations: 24 Pulse Ox (%): 94 - Physical Exam General: Alert, In no apparent distress, Oriented x3, Other (More sleepy) HEENT: Atraumatic, PERRLA, EOMI Neck: Supple, JVD not distended Respiratory: Clear to auscultation bilaterally, Normal air movement Cardiovascular: Regular rate/rhythm, Normal S1 S2 Gastrointestinal: Normal bowel sounds, No tenderness Musculoskeletal: No tenderness Integumentary: No rashes Neurological: Normal speech, Normal tone, Normal affect Lymphatics: No axilla or inguinal lymphadenopathy Assessment And Plan - Current Problems (Diagnosis) (1) Acute respiratory failure Onset Date: 04/28/18 Current Visit: No Status: Acute Qualifiers: Respiratory failure complication: hypoxia Qualified Code(s): J96.01 - Acute respiratory failure with hypoxia (2) COPD exacerbation Onset Date: 04/28/18 Current Visit: No Status: Acute (3) Hypertension Onset Date: 04/28/18 Current Visit: No Status: Chronic Qualifiers: Hypertension type: essential hypertension Qualified Code(s): I10 - Essential (primary) hypertension (4) Hyperglycemia Current Visit: Yes Status: Acute (5) Shoulder pain Current Visit: Yes Status: Acute Qualifiers: Chronicity: acute Laterality: left Qualified Code(s): M25.512 - Pain in left shoulder (6) Back pain Current Visit: Yes Status: Chronic Qualifiers: Back pain location: low back pain Chronicity: chronic Back pain laterality: bilateral Sciatica presence: without sciatica Qualified Code(s) : M54.5 - Low back pain; G89.29 - Other chronic pain - Plan This is a 73-year-old female with: Acute respiratory failure COPD exacerbation Continue breathing treatments, oxygen per protocol. IV steroids due to hypoglycemic. Patient refuses steroids. Okay to hold as patient's breathing has improved Hypertension Stable. Restart home medications. Hyperglycemia Initially it was thought that steroids were causing the hypoglycemia. The patient with a blood sugar 400+ on admission when she was not receiving steroids. Patient states she does not have a history of diabetes. Will go ahead and check an A1c, nutrition consult, 1800 diabetic diet. We will go ahead and continue Accu-Cheks and insulin at this time. If A1c elevated, may need oral diabetes medications on discharge along with diabetes resources. 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 She was seen at [facility] after the fall. Imaging was done, was told that she may have a fracture in the left shoulder. States that her pain has been worsening and she has not seen any orthopedic/bone doctor at this time Shoulder x-ray ordered, pending once resulted, will get physical therapy to evaluate Back pain, chronic Patient on multiple medications for pain at home. Will go ahead and try a fentanyl patch to the back to see if this will help her chronic back pain. At discharge, she may need follow up with pain management physician. DVT prophylaxis: Lovenox GI prophylaxis: None Diet: 1800 diabetic diet Disposition: Pending symptomatic improvement. Likely discharge home in the next 12:48 p.m.
[2018-08-01] MEDS: PHENOL 1.4% ORAL SPRAY 180ML MM PRN ×2 (05:35→14:23)
[2018-08-01] MEDS: PANTOPRAZOLE 40MG TABLET PO SCH (05:35)
[2018-08-01] MEDS: GUAIFENESIN/CODEINE 5ML UCUP PO PRN ×2 (05:44→14:22)
[2018-08-01] MEDS: INSULIN -REGULAR HUMAN 50 UNIT/0.5 ML ML SQ SCH ×4 (07:30→21:00)
[2018-08-01] MEDS: LEVOTHYROXINE SOD 0.088 MG TAB PO SCH (08:29)
[2018-08-01] MEDS: FUROSEMIDE 20 MG TABLET PO SCH (08:29)
[2018-08-01] MEDS: ROPINIROLE HCL 1 MG TAB PO SCH ×2 (08:30→20:20)
[2018-08-01] MEDS: RIVAROXABAN 20 MG TABLET PO SCH (08:30)
[2018-08-01] MEDS: GABAPENTIN 100 MG CAP PO SCH ×3 (08:30→20:20)
[2018-08-01] MEDS: MONTELUKAST 10 MG TAB PO SCH (08:30)
[2018-08-01] MEDS: INSULIN 70/30 100 UNITS/ML SQ SCH (08:30)
[2018-08-01] MEDS: HYDROCODONE/APAP 10/325 TAB PO PRN ×2 (09:37→20:21)
[2018-08-01] MEDS ORDERED: ALBUTEROL 2.5 MG/3 ML NEB SOL NEB PRN (14:28)
--- NOTE | 2018-08-01 15:25 | P.PN ---
Subjective Date of Service: 08/01/18 Chief Complaint: Shortness of breath Patient seen and examined at bedside. Son at bedside. Chart reviewed and case discussed with nursing staff. Patient reports breathing improved; desats to the below 85% on room air, especially after exertion. Review of Systems 10-point ROS is otherwise unremarkable Physical Examination - Vital Signs Temperature: 97 F Blood Pressure: 110/53 Pulse: 78 Respirations: 20 Pulse Ox (%): 93 - Physical Exam General: Alert, In no apparent distress, Oriented x3 HEENT: Atraumatic, PERRLA, EOMI Neck: Supple, JVD not distended Respiratory: Clear to auscultation bilaterally, Normal air movement Cardiovascular: Regular rate/rhythm, Normal S1 S2 Gastrointestinal: Normal bowel sounds, No tenderness Musculoskeletal: No tenderness Integumentary: No rashes Neurological: Normal speech, Normal tone, Normal affect Lymphatics: No axilla or inguinal lymphadenopathy Assessment And Plan - Current Problems (Diagnosis) (1) Acute respiratory failure Onset Date: 04/28/18 Current Visit: No Status: Acute Qualifiers: Respiratory failure complication: hypoxia Qualified Code(s): J96.01 - Acute respiratory failure with hypoxia (2) COPD exacerbation Onset Date: 04/28/18 Current Visit: No Status: Acute (3) Hypertension Onset Date: 04/28/18 Current Visit: No Status: Chronic Qualifiers: Hypertension type: essential hypertension Qualified Code(s): I10 - Essential (primary) hypertension (4) Hyperglycemia Current Visit: Yes Status: Acute (5) Shoulder pain Current Visit: Yes Status: Acute Qualifiers: Chronicity: acute Laterality: left Qualified Code(s): M25.512 - Pain in left shoulder (6) Back pain Current Visit: Yes Status: Chronic Qualifiers: Back pain location: low back pain Chronicity: chronic Back pain laterality: bilateral Sciatica presence: without sciatica Qualified Code(s) : M54.5 - Low back pain; G89.29 - Other chronic pain - Plan This is a 73-year-old female with: Acute respiratory failure COPD exacerbation Now resolved Continue breathing treatments, oxygen per protocol. IV steroids due to hypoglycemic. Patient refuses steroids. Okay to hold as patient's breathing has improved COPD, chronic and stable, requiring home oxygen Social work involved to set up home oxygen Hypertension Stable. Restart home medications. Hyperglycemia A1c 7.5 Initially it was thought that steroids were causing the hypoglycemia. The patient with a blood sugar 400+ on admission when she was not receiving steroids. Patient states she does not have a history of diabetes. Will go ahead and check an A1c, nutrition consult, 1800 diabetic diet. We will go ahead and continue Accu-Cheks and insulin at this time. Patient will need to be discharged on oral diabetes medication along with diabetes resources. 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 She was seen at [facility] after the fall. Imaging was done, was told that she may have a fracture in the left shoulder. States that her pain has been worsening and she has not seen any orthopedic/bone doctor at this time Shoulder x-ray ordered, negative for any acute abnormality Patient work with physical therapy Social work involved for home health with physical therapy Back pain, chronic Patient on multiple medications for pain at home. [employer] patch discontinued as patient was very sleepy and not really working with physical therapy. Pain seems to be well controlled on [place] at this time. At discharge, she may need follow up with pain management physician. DVT prophylaxis: Lovenox GI prophylaxis: None Diet: 1800 diabetic diet Disposition: Pending symptomatic improvement and home oxygen set up. Likely discharge home once oxygen set up for home.
--- NOTE | 2018-08-01 15:33 | RAD REPORT ---
EXAM DESCRIPTION: RAD - Chest Pa And Lat (2 Views) - 08/01/2018 3:21 pm CLINICAL HISTORY: SOB Chest pain. COMPARISON: Chest Single View dated 07/27/2018; Chest Pa And Lat (2 Views) dated 04/27/2018; CHEST SI NGLE VIEW dated 12/27/2009; CHEST SINGLE VIEW dated 09/29/2009 FINDINGS: The lungs are mildly emphysematous. Mild linear opacities are present in anterior left krystal g base, new since comparative study. This may represent areas of atelectasis or aspiration. The heart is mildly enlarged in size. Aortic atherosclerosis. No displaced fractures.
[2018-08-02] MEDS: PANTOPRAZOLE 40MG TABLET PO SCH (06:06)
[2018-08-02] MEDS: HYDROCODONE/APAP 10/325 TAB PO PRN (06:10)
[2018-08-02] MEDS: INSULIN -REGULAR HUMAN 50 UNIT/0.5 ML ML SQ SCH ×3 (07:30→16:30)
[2018-08-02] MEDS: ROPINIROLE HCL 1 MG TAB PO SCH (09:02)
[2018-08-02] MEDS: FENTANYL 50 MCG/PATCH TD SCH (09:02)
[2018-08-02] MEDS: LEVOTHYROXINE SOD 0.088 MG TAB PO SCH (09:03)
[2018-08-02] MEDS: FUROSEMIDE 20 MG TABLET PO SCH (09:04)
[2018-08-02] MEDS: MONTELUKAST 10 MG TAB PO SCH (09:04)
[2018-08-02] MEDS: RIVAROXABAN 20 MG TABLET PO SCH (09:04)
[2018-08-02] MEDS: GABAPENTIN 100 MG CAP PO SCH ×2 (09:04→16:36)
[2018-08-02] MEDS: INSULIN 70/30 100 UNITS/ML SQ SCH (09:05)
[2018-08-02] MEDS: GUAIFENESIN/CODEINE 5ML UCUP PO PRN (09:14)
[2018-08-02] MEDS: PHENOL 1.4% ORAL SPRAY 180ML MM PRN (09:14)
--- NOTE | 2018-08-03 05:05 | DS ---
Date of Discharge: 08/02/2018 Admitting Diagnoses: 1.Acute respiratory failure with hypoxia. 2.Acute chronic obstructive pulmonary disease exacerbation. 3.Essential hypertension. Discharge Diagnoses: 1.Acute respiratory failure with hypoxia, improved. The patient is set up with home oxygen. 2.Acute chronic obstructive pulmonary disease exacerbation, improved. The patient refused steroids. 3.Essential hypertension, stable. 4.Hyperglycemia. 5.Left shoulder pain, acute. 6.Chronic back pain, midline, without sciatica. 7.Obesity, body mass index 37.4. 8.New-onset diabetes mellitus type 2. Hospital Course: The patient is a 73-year-old female who was admitted to the hospital for shortness of breath. The patient was hypoxic, was found to have COPD exacerbation. She was started on breathi ng treatments and steroids. She did refuse steroids. Her other home medications were resumed. The patient's imaging studies including a chest x-ray showed some emphysema and some atelectasis, however , no pneumonia. Her blood cultures were negative, final. Her influenza screen was also negative. T he patient responded well to breathing treatments. She did well over the course of the hospital stay . She did have severe hyperglycemia. A1c was checked and was elevated at 7.5%. The patient does no t have a previous diagnosis of diabetes. The patient did complain of some back pain and shoulder mahesh n. She did have some arthritic changes, however, no dislocation or fracture. Her back x-ray also sh owed some osteopenia and a small stone in the inferior left kidney which was asymptomatic. The patie nt overall did well. She was hypoxic on room air and had to be set up with home oxygen, room air sat s were 85%. The patient was then set up with home oxygen and was discharged home in a fair condition . Activity: No strenuous activity. Diet: Heart healthy, diabetic diet. Followup: Follow up with primary care physician in 2-3 days. Return to ER for worsening condition. Medications: As per medication reconciliation list. Code Status: Full. Physical Examination: General: Awake, alert, oriented x3, elderly female. CV: S1, S2. No murmurs. Respiratory: Moving air well. No significant wheezing. Gastrointestinal: Abdomen is soft, nontender, nondistended. Positive bowel sounds. Extremities: No clubbing, cyanosis, or edema. Neurologic: Nonfocal. Total time spent discharging the patient was 39 minutes. /SARAH Voice ID: [id number] Report ID: [id number]
== END 2018-08-02 16:43 | disposition home health service (06) | DRG 190 ==
LOC: ER 17:10 → ERHOLD 21:29 → 2ND 22:06 → OBSVTOIN 08-02 07:59
PROVIDERS: ADMIT Hospitalist; ATTEND Family Medicine
DX: J44.1 Chronic obstructive pulmonary disease with (acute) exacerbation (principal); J96.01 Acute respiratory failure with hypoxia; I10 Essential (primary) hypertension; E11.65 Type 2 diabetes mellitus with hyperglycemia; E66.9 Obesity, unspecified; Z68.37 Body mass index [BMI] 37.0-37.9, adult; G89.29 Other chronic pain; M54.5 Low back pain; M25.512 Pain in left shoulder; Z88.1 Allergy status to other antibiotic agents; Z88.0 Allergy status to penicillin; Z88.2 Allergy status to sulfonamides; Z88.8 Allergy status to other drugs, medicaments and biological substances
CPT/HCPCS: 36415; 71045; 71046; 72100; 80048; 80053; 82962; 83036; 83880; 84145; 84484; 85025; 87040; 87804; 93005; 94640; 94660; 96374; 97116; 97163; 97530; 99285; G0378; J2270; J2930; J7030